=== PATIENT | female | born 1960 | race American Indian/Alaskan Native ===

== ENCOUNTER 2016-06-11 23:38 | Emergency (ER) | payer BC, OTHER ==
[2016-06-12 00:39] LABS: Basophils % (Auto) 0.6 % (0.0-1.8); Eosinophils % (Auto) 1.2 % (0.0-4.3); Hematocrit 43.7 % (30.3-42.9); Hemoglobin 14.1 gm/dl (10.1-14.3); Mean Corpuscular HGB Conc 32 % (30-34); Mean Corpuscular Hemoglobin 28 pg (28-32); Mean Corpuscular Volume 86 fl (79-97); Platelet Count 238 K/mm3 (140-440); Red Cell Distribution Width 12.8 % (13.2-15.2); White Blood Count 10.2 K/mm3 (4.5-11.0)
[2016-06-12 01:01] LABS: Anion Gap 15 mmol/L; BUN/Creatinine Ratio 17.14; Blood Urea Nitrogen 12 mg/dL (7-17); Calcium 8.9 mg/dL (8.4-10.2); Carbon Dioxide 33 mmol/L (22-30); Chloride 95.1 mmol/L (98-107); Glucose 293 mg/dL (65-100); Potassium 3.5 mmol/L (3.6-5.0); Sodium 140 mmol/L (137-145)
[2016-06-12] MEDS ORDERED: MORPHINE IV ONE (10:19)
--- NOTE | 2016-06-12 10:26 | Emergency Department Report ---
ED Chest Pain HPI - General Chief Complaint: Chest Pain Stated Complaint: CHEST PAIN Time Seen by Provider: 06/12/16 10:05 Source: patient Mode of arrival: Ambulatory Limitations: No Limitations - History of Present Illness Initial Comments: This is a 56-year-old -[place] female presents the emergency department from home with complaint of a 4 to five-day history of chest pain and some mild shortness of breath. The chest pain is mostly midsternal but radiates towards the left breast. The pain is more of a pressure sensation and happens intermittently. The patient thought it might be gas at first and tried drinking a concoction of baking soda, water and limit juice without any relief. She denies any cough, fever, nausea, vomiting or diaphoresis. The patient has a history of [id number] diabetes, hypertension, pancreatitis, anxiety. She has significant family history for cardiac disease and the fact that her mother from an KS at 47 years of age. Her sister had her first KS at 45 years of age. No recent travel or sick contacts at home. She denies tobacco or illicit drug use or abuse. Severity scale (0 -10): 7 - Related Data Home Medications Medication Instructions Recorded Confirmed Last Taken Citalopram [celeXA] 20 mg PO QDAY 05/24/13 06/21/15 05/23/13 14:00 Lisinopril [Zestril] 40 mg PO QDAY 05/24/13 06/21/15 05/23/13 14:00 Metformin HCl [Glumetza] 1,000 mg PO BID 05/24/13 06/21/15 05/23/13 14:00 glipiZIDE [Glipizide ER] 5 mg PO QAM 05/24/13 06/21/15 05/23/13 14:00 AtorvaSTATin [Lipitor] 40 mg PO HS 06/21/15 06/21/15 Unknown Previous Rx's Medication Instructions Recorded Last Taken Type Ibuprofen [Motrin] 800 mg PO Q8H PRN #30 tablet 07/28/14 Unknown Rx methOCARBAMOL [Robaxin] 500 mg PO BID #10 tab 07/28/14 Unknown Rx traMADol [Ultram] 50 mg PO Q6HR PRN #14 tablet 07/28/14 Unknown Rx Docusate Sodium [Colace] 100 mg PO BID PRN #20 capsule 06/21/15 Unknown Rx HYDROcodone/APAP 5-325 [[place] 1 each PO Q6HR PRN #20 tablet 06/21/15 Unknown Rx 5/325] Mag Hydrox/Al Hydrox/Simeth 30 ml PO QID PRN #1 bottle 06/21/15 Unknown Rx [Maalox Advanced Suspension] Omeprazole [PriLOSEC] 40 mg PO QDAY #30 cap 06/21/15 Unknown Rx Ondansetron [Zofran Odt] 4 mg PO Q8HR PRN #20 tab.rapdis 06/21/15 Unknown Rx traMADol [Ultram 50 MG tab] 50 mg PO Q6HR PRN #20 tablet 06/21/15 Unknown Rx Pantoprazole [Protonix] 40 mg PO QDAY #30 tablet 06/12/16 Unknown Rx Sucralfate [Carafate] 1 gm PO ACHS #28 tablet 06/12/16 Unknown Rx Allergies Allergy/AdvReac Type Severity Reaction Status Date / Time No Known Allergies Allergy Verified 06/21/15 12:31 VIJI score - Viji Score Age > 65: (0) No Aspirin use within the Past 7 Days: (0) No 3 or more CAD Risk Factors: (1) Yes 2 or more Angina events in past 24 hrs: (1) Yes Known CAD with more than 50% Stenosis: (0) No Elevated Cardiac Markers: (0) No ST Deviation Greater than 0.5mm: (0) No VIJI Score: 2 ED Review of Systems ROS: Stated complaint: CHEST PAIN Other details as noted in HPI Comment: All other systems reviewed and negative Constitutional: denies: chills, fever Eyes: denies: eye pain, eye discharge, vision change ENT: denies: ear pain, throat pain Respiratory: shortness of breath. denies: cough Cardiovascular: chest pain. denies: palpitations Gastrointestinal: denies: abdominal pain, nausea, diarrhea Genitourinary: denies: urgency, dysuria, discharge Musculoskeletal: denies: back pain, joint swelling, arthralgia Skin: denies: rash, lesions Neurological: denies: headache, weakness, paresthesias ED Past Medical Hx - Past Medical History Previous Medical History?: Yes Hx Hypertension: Yes Hx Diabetes: Yes Hx Psychiatric Treatment: Yes (ANXIETY) Additional medical history: h. pylori infection 5 years ago, pancreatitis, hi cholest - Surgical History Past Surgical History?: Yes Additional Surgical History: csection X 2. carpal tunnel - Social History Smoking Status: Current Every Day Smoker Substance Use Type: None - Medications Home Medications: Home Medications Medication Instructions Recorded Confirmed Last Taken Type Citalopram [celeXA] 20 mg PO QDAY 05/24/13 06/21/15 05/23/13 14:00 History Lisinopril [Zestril] 40 mg PO QDAY 05/24/13 06/21/15 05/23/13 14:00 History Metformin HCl [Glumetza] 1,000 mg PO BID 05/24/13 06/21/15 05/23/13 14:00 History glipiZIDE [Glipizide ER] 5 mg PO QAM 05/24/13 06/21/15 05/23/13 14:00 History Ibuprofen [Motrin] 800 mg PO Q8H PRN #30 tablet 07/28/14 06/21/15 Unknown Rx methOCARBAMOL [Robaxin] 500 mg PO BID #10 tab 07/28/14 06/21/15 Unknown Rx traMADol [Ultram] 50 mg PO Q6HR PRN #14 tablet 07/28/14 06/21/15 Unknown Rx AtorvaSTATin [Lipitor] 40 mg PO HS 06/21/15 06/21/15 Unknown History Docusate Sodium [Colace] 100 mg PO BID PRN #20 capsule 06/21/15 Unknown Rx HYDROcodone/APAP 5-325 [[place] 1 each PO Q6HR PRN #20 tablet 06/21/15 Unknown Rx 5/325] Mag Hydrox/Al Hydrox/Simeth 30 ml PO QID PRN #1 bottle 06/21/15 Unknown Rx [Maalox Advanced Suspension] Omeprazole [PriLOSEC] 40 mg PO QDAY #30 cap 06/21/15 Unknown Rx Ondansetron [Zofran Odt] 4 mg PO Q8HR PRN #20 tab.rapdis 06/21/15 Unknown Rx traMADol [Ultram 50 MG tab] 50 mg PO Q6HR PRN #20 tablet 06/21/15 Unknown Rx Pantoprazole [Protonix] 40 mg PO QDAY #30 tablet 06/12/16 Unknown Rx Sucralfate [Carafate] 1 gm PO ACHS #28 tablet 06/12/16 Unknown Rx ED Physical Exam - General Limitations: No Limitations - Other Other exam information: GENERAL: The patient is well-developed well-nourished. HEENT: Normocephalic. Atraumatic. Extraocular motions are intact. Patient has moist mucous membranes. Pupils equal reactive to light bilaterally. NECK: Supple. Trachea is midline. CHEST/LUNGS: Clear to auscultation. There is no respiratory distress noted. Chest pain is not reproducible to palpation the chest wall. HEART/CARDIOVASCULAR: Regular. There is no tachycardia. There is no gallop rub or murmur. ABDOMEN: Abdomen is soft, nontender. No guarding or rebound tenderness. Patient has normal bowel sounds. There is no abdominal distention. Obese habitus. SKIN: Skin is warm and dry. NEURO: The patient is awake, alert, and oriented. The patient is cooperative. The patient has no focal neurologic deficits. The patient has normal speech. MUSCULOSKELETAL: There is no tenderness or deformity. There is no limitation range of motion. There is no evidence of acute injury. ED Course Vital Signs 06/11/16 06/12/16 06/12/16 23:56 06:36 07:23 Temperature 98.0 F 97.8 F Pulse Rate 73 67 68 Respiratory 18 14 16 Rate Blood Pressure 152/87 Blood Pressure 133/75 126/67 [Left] O2 Sat by Pulse 97 98 100 Oximetry 06/12/16 06/12/16 11:50 17:01 Temperature 98.1 F Pulse Rate 67 Respiratory 18 16 Rate Blood Pressure Blood Pressure 114/69 [Left] O2 Sat by Pulse 99 Oximetry ED Medical Decision Making - Lab Data Result diagrams: 06/12/16 00:21 06/12/16 00:21 - EKG Data -: EKG Interpreted by Me EKG shows normal: sinus rhythm, axis, intervals, QRS complexes (low voltage qrs , qwaves to septal leads), ST-T waves Rate: normal - EKG Data When compared to previous EKG there are: no significant change Interpretation: unchanged when compared t (06/21/15) - Radiology Data Radiology results: report reviewed, image reviewed interpreted by me: Chest x-ray did not show any acute process. Heart is normal shape and size. No effusions. No pneumothorax. No signs of pneumonia seen. CT angiogram of the chest does not show any pulmonary embolism, dissection or any acute process. CT of the abdomen and pelvis with IV contrast shows signs of early acute pancreatitis. - Medical Decision Making 56-year-old female presents with 4-5 day history of some midsternal chest pain. EKG does not show any signs of ST elevation KS. Chest x-ray does not show any acute process. Patient had an elevated d-dimer of about [address] angiography of the chest was done that did not show any pulmonary was a more dissection or any acute process. The patient also says that she has a history of pancreatitis in the past so a lipase was done and came back at 1:15. A CT of the abdomen and pelvis with IV contrast came back showing early acute pancreatitis. My plan was for the patient to be admitted for further evaluation of her pancreatitis and possibly cardio consultation or stress test. However the hospitalist did a consultation and discharge patient home to follow-up with her PCP and store associate. - Differential Diagnosis KS, PE, pancreatitis, GERD Critical Care Time: No Critical care attestation.: If time is entered above; I have spent that time in minutes in the direct care of this critically ill patient, excluding procedure time. ED Disposition Clinical Impression: Atypical chest pain Pancreatitis Qualifiers: Chronicity: acute Pancreatitis type: unspecified pancreatitis type Acute pancreatitis complication: no infection or necrosis Qualified Code(s): K85.90 - Acute pancreatitis without necrosis or infection, unspecified Obesity Qualifiers: Obesity severity: unspecified obesity severity Disposition: DISCHARGED TO HOME OR SELFCARE Is pt being admited?: Yes Condition: Stable Instructions: Chest Pain (ED) Prescriptions: Pantoprazole [Protonix] 40 mg PO QDAY #30 tablet Sucralfate [Carafate] 1 gm PO ACHS #28 tablet Referrals: PRIMARY CARE, [Primary Care Provider] - 3-5 Days
--- NOTE | 2016-06-12 10:50 | XRay Report ---
AP CHEST: HISTORY: chest pain AP view of the chest demonstrates a normal mediastinal and cardiac contour with clear lungs and normal bony and soft tissue structures. IMPRESSION: Unremarkable AP chest.
--- NOTE | 2016-06-12 11:18 | Admit Criteria Form ---
Admission Criteria Documentation: CARDIOLOGY GRG Clinical Indications for Admission to Inpatient Care ( Place 'X' for any and all applicable criteria): Hospital admission is needed for appropriate care of the patient because of ANY ONE of the following (1): [ ] I. Hemodynamic instability as indicated by ALL of the following (1)(2)(3) (4)(5) [ ]a) Vital signs or other findings not as expected for chronic patient condition or baseline [ ]b) Instability indicated by ANY ONE of the following: [ ]i) Hypotension [ ]ii) Symptomatic Tachycardia unresponsive to treatment ( e.g., analgesia, fluids, sedation as indicated) [ ]iii) Inadequate perfusion indicated by ANY ONE of the following: [ ] 1) Lactic acidosis (> 2 mmol/L) [ ] 2) New abnormal capillary refill (> 3 seconds) [ ] 3) Reduced urine output [ ] 4) New altered mental status [ ]iv) Orthostatic vital sign changes unresponsive to treatment (e.g., fluids) [ ]v) IV inotropic or vasopressor medication required to maintain adequate blood pressure or perfusion [ ] II. Severe heart failure as indicated by ANY ONE of the following(17)(18) [ ]a) Respiratory distress [ ]b) Hypotension [ ]c) Anasarca (refractory to outpatient therapy) [ ]d) Cardiac arrhythmias of immediate concern [ ]e) Myocardial ischemia [ ] III. Cardiac arrhythmias or findings of immediate concern indicated by ANY ONE of the following (19)(20): [ ] a) Heart rhythms that are inherently dangerous or unstable indicated by ANY ONE of the following (21)(22)(23): [ ] i) Resuscitated ventricular fibrillation or cardiac arrest [ ] ii) Ventricular escape rhythm [ ] iii) Sustained ventricular tachycardia (30 seconds or more of ventricular rhythm at greater than 100 beats per minute) [ ] iv) Nonsustained ventricular tachycardia and ANY ONE of the following: [ ] 1) Suspected cardiac ischemia as cause or consequence of ventricular tachycardia [ ] 2) In setting of acute myocarditis [ ] b) Unstable cardiac conduction defects indicated by ANY ONE of the following(23)(24)(25) [ ] i) Type II second-degree atrioventricular block [ ]ii) Third-degree atrioventricular block [ ]iii) New-onset left bundle branch block with suspected myocardial ischemia [ ]c) Any heart rhythm and ANY ONE of the following (21)(22)(26)(27) (28) [ ] i) Continuous long-term ECG monitoring needed (e.g., initiation of drug requiring monitoring for more than 24 hours) [ ] ii) Patient has automatic implanted cardioverter defibrillator that is repeatedly firing, malfunctioning, or in need of immediate adjustment of settings beyond the scope of ambulatory or observation care [ ]d) Heart rhythms of concern due to ANY ONE of the following: [ ] i) Hypotension [ ] ii) Respiratory distress [ ] iii) Association with other significant symptoms (e.g., bradycardia with syncope or ongoing dizziness, supraventricular tachycardia with chest pain (14)(15)(17) [ ] IV. Monitoring for cardiac contusion beyond the scope of observation care needed [A](30)(31)(32) [ ] V. Surgical or device complication (e.g., valve replacement complication , pacemaker dysfunction) (35)(41)(44)(45)(46) [ ] . Inpatient palliative care needed. [B](49) Also use Inpatient Palliative Care Criteria [ ] VII. Nonbacterial thrombotic (marantic) endocarditis (36)(43)(47)(48) [X ] VIII. Cardiology condition, symptom, or finding for which emergency and observation care has failed or are not considered appropriate. [ ] IX. Acute valvular disease requiring inpatient as indicated by ANY ONE of the following (41) [ ]a) Acute valvular regurgitation (42) [ ]b) Noninfectious valvulitis (43) [ ]c) Obstructive valve thrombosis [ ]d) Paravalvular leak [ ]e) Other significant valvular disorder remaining after emergency or observation level of care (as appropriate) [ ]X. Pericardial disease requiring inpatient treatment as indicated by ANY ONE of the following (33)(34)(35)(36)(37) [ ]a) Suspected tamponade (38)(39)(40) [ ]b) Hemopericardium [ ]c) Other significant pericardial disorder remaining after emergency or observation level of care (as appropriate) [ ] XI. Cardiac ischemia beyond scope of emergency and observation care. [ ] XII. Hypertension requiring inpatient treatment as indicated by ANY ONE of the following (6)(7)(8) [ ]a) SBP greater than 220 mm Hg or DBP greater than 120 mmHg despite treatment [ ]b) SBP greater than 140 mm Hg or DBP greater than 100 mm Hg with evidence of acute end organ damage as indicated by ANY ONE of the following [ ] i) Altered mental status [ ] ii) Acute renal failure as indicated by new onset of ANY ONE of the following (9)(10)(11)(12)(13) [ ]1) 3-fold rise in serum creatinine from baseline [ ]2) Serum creatinine greater than 4 mg/dL ( 354 micromoles/L) with acute rise greater than 0.5 mg/dL (44.2 micromoles/L) [ ]3) Reduction of more than 75% in estimated glomerular filtration rate from baseline [ ]4) Estimated glomerular filtration rate less than 35 mL/min/1.73m2 (0.59 mL/sec/1.73m2) in child up to 18 years of age [ ]5) Cessation of urine output indicated by ALL of the following [ ]A. Adequate volume status [ ]B. Inadequate urine output as indicated by ANY ONE of the following [ ]a. Urine output less than 0.3 mL/kg/hr for 24 hours [ ]b. Anuria (urine output less than 0.1 mL/kg/hr) for 12 hours [ ] iii) Aortic dissection [ ] iv) Myocardial Ischemia [ ] v) Left ventricular heart failure [ ]vi) Retinal Hemorrhage [ ]vii) Other significant finding [ ]c) Hypertension in child requiring inpatient treatment as indicated by ALL of the following(14)(15)(16) [ ] i) Outpatient treatment not effective, not available, or not appropriate [ ]ii) SBP or DBP greater than 95th percentile for age [ ]iii) Evidence of acute end organ damage as indicated by ANY ONE of the following [ ]1) Altered mental status [ ]2) Acute renal failure as indicated by new onset of ANY ONE of the following(9)(10)(11)(12)(13) [ ]A. 3-fold rise in serum creatinine from baseline [ ]B. Serum creatinine greater than 4 mg/dL (354 micromoles/L) with acute rise greater than 0.5 mg/dL (44.2 micromoles/L) [ ]C. Reduction of more than 75% in estimated glomerular filtration rate from baseline [ ]D. Estimated glomerular filtration rate less than 35 mL/min/1.73m2 (0.59 mL/sec/1.73m2) in child up to 18 years of age [ ]E. Cessation of urine output indicated by ALL of the following [ ]a. Adequate volume status [ ]b. Inadequate urine output as indicated by ANY ONE of the following [ ]i) Urine output less than 0.3 mL/kg/hr for 24 hours [ ]ii) Anuria ( urine output less than 0.1 mL/kg/hr) for 12 hours [ ]3) Severe headache [ ]4) Visual disturbance [ ]5) Retinal hemorrhage [ ]6) Other significant finding [ ]XIII. Complications of transplanted heart indicated by ANY ONE of the following(61): [ ]a) Acute graft rejection requiring inpatient management (eg, intravenous immunosuppression)(62)(63) [ ]b) Acute graft heart failure indicated by ANY ONE of the following(64): [ ]i) Hemodynamic instability [ ]ii) Cardiac arrhythmias of immediate concern [ ]iii) Pulmonary edema that is very severe (eg, mechanical ventilation needed, imminent or likely, need for 100% oxygen to keep oxygen saturation above 90%) [ ]iv) Pulmonary edema that is persistent as indicated by ALL of the following: [ ]1) New need for oxygen therapy to keep oxygen saturation above 90% (or increased FiO2 need from baseline) [ ]2) Has not improved sufficiently with emergency department or observation care IV diuretics or other heart failure treatments[E] [ ]v) Altered mental status that is severe or persistent [ ]vi) Increased creatinine (new on laboratory test) with reduction of more than 50% in estimated glomerular filtration rate from baseline [ ]vii) Progressively (ongoing) rising creatinine (known from past laboratory test) with reduction of more than 25% in estimated glomerular filtration rate from baseline [ ]viii) Acute renal failure [ ]ix) Acute peripheral ischemia (eg, examination shows pulseless, cool, mottled, or cyanotic extremity) [ ]x) Pulmonary artery catheter monitoring needed [ ]xi) Other sign or symptom of heart failure requiring inpatient treatment (ie, too severe or not responsive to outpatient and observation care treatment) [ ]c) Infection requiring inpatient management (eg, Hemodynamic instability, need for intravenous antimicrobial treatment)(66)(67)(68)(69)(70) [ ]d) Cardiac allograft vasculopathy requiring inpatient management ( eg evidence of cardiac ischemia)(71) [ ]e) Other complication of transplanted heart (eg, stroke, severe pulmonary hypertension, severe valvular dysfunction) requiring inpatient management(72) The original [facility] [employer] content created by [facility] [employer] has been revised. The portions of the content which have been revised are identified through the use of italic text or in bold, and [facility] has neither reviewed nor approved the modified material. All other unmodified content is copyright [facility] [employer]. Please see references footnoted in the original [facility] [employer] edition 2016 Admission Criteria Met: Yes
[2016-06-12] MEDS ORDERED: ZOFRAN ONE (11:31)
[2016-06-12] MEDS ORDERED: ZOFRAN IV ONE (11:49)
[2016-06-12] MEDS ORDERED: NACL ONE (12:11)
--- NOTE | 2016-06-12 13:55 | Cat Scan Report ---
CTA CHEST: History: Chest pain. Technique: Helical CT following IV contrast. Pulmonary embolus protocol. Sagittal and coronal reformatted images. Rotational MIP images. Findings: Contrast bolus is satisfactory. No pulmonary embolus is identified. The thyroid gland, tracheobronchial tree, esophagus, heart, pericardium, mediastinal vessels, lung barnes and bony thorax are unremarkable. Impression: No evidence for pulmonary embolus. Unremarkable CT chest with contrast.
--- NOTE | 2016-06-12 13:57 | Cat Scan Report ---
CT SCAN OF THE ABDOMEN AND PELVIS WITH CONTRAST: HISTORY: Abdominal pain. TECHNIQUE: Helical CT in 1.25mm intervals following IV contrast. Sagittal and coronal reconstructions. FINDINGS: There is very subtle fat stranding surrounding the body and tail of the pancreas. No evidence for pancreatic mass, ductal dilatation or pseudocyst. Very early acute pancreatitis is suspected. The liver is normal in size and is without focal defect. No gallstones or biliary dilatation are noted. The spleen is normal size and attenuation with no evidence of abnormal mass. The kidneys are normal in size and position with no evidence of hydronephrosis or mass. The adrenal glands are normal. There is no intestinal obstruction or ascites. Normal appendix. The abdominal aorta is normal. The uterus and adnexa are within normal limits. There is no evidence of peritoneal air or fluid. There is no evidence of any abnormal masses or fluid collections within the pelvis. No adenopathy is identified. The bladder is normal. IMPRESSION: Findings suggestive of an early acute pancreatitis. No pseudocyst, mass or necrosis. No obvious cholelithiasis on CT.
--- NOTE | 2016-06-12 15:46 | Consultation ---
History of Present Illness - Reason for Consult Consult date: 06/12/16 Requesting physician: HANK TOWNSEND - History of Present Illness 56 YO Female with DM, HTN, Anxiety, PUD, Nicotine Dependence, HLD, Metabolic Syndrome presents to ED for evaluation. Pt states that she has been experiencing pain in her epigastric area for the past 2 weeks. Pt states that her pain is constant, 8/10, nonradiating, not worsened with exertion, or relieved with rest. Pt acknowledges pain after eating, Pt denies fever, chills, palpitations, hemoptysis, shortness of breath, leg swelling, calf pain, prolonged travel/immobility, individual/family history of DVT/PE. Pt states that she drank a mixture of baking soda, water and lemon juice without any relief. Past History Past Medical History: diabetes, hypertension, hyperlipidemia Past Surgical History: Other (reviewed) Social history: single. denies: smoking, alcohol abuse Family history: hypertension Medications and Allergies Allergies Allergy/AdvReac Type Severity Reaction Status Date / Time No Known Allergies Allergy Verified 06/21/15 12:31 Home Medications Medication Instructions Recorded Confirmed Last Taken Type Citalopram [celeXA] 20 mg PO QDAY 05/24/13 06/21/15 05/23/13 14:00 History Lisinopril [Zestril] 40 mg PO QDAY 05/24/13 06/21/15 05/23/13 14:00 History Metformin HCl [Glumetza] 1,000 mg PO BID 05/24/13 06/21/15 05/23/13 14:00 History glipiZIDE [Glipizide ER] 5 mg PO QAM 05/24/13 06/21/15 05/23/13 14:00 History Ibuprofen [Motrin] 800 mg PO Q8H PRN #30 tablet 07/28/14 06/21/15 Unknown Rx methOCARBAMOL [Robaxin] 500 mg PO BID #10 tab 07/28/14 06/21/15 Unknown Rx traMADol [Ultram] 50 mg PO Q6HR PRN #14 tablet 07/28/14 06/21/15 Unknown Rx AtorvaSTATin [Lipitor] 40 mg PO HS 06/21/15 06/21/15 Unknown History Docusate Sodium [Colace] 100 mg PO BID PRN #20 capsule 06/21/15 Unknown Rx HYDROcodone/APAP 5-325 [[place] 1 each PO Q6HR PRN #20 tablet 06/21/15 Unknown Rx 5/325] Mag Hydrox/Al Hydrox/Simeth 30 ml PO QID PRN #1 bottle 06/21/15 Unknown Rx [Maalox Advanced Suspension] Omeprazole [PriLOSEC] 40 mg PO QDAY #30 cap 06/21/15 Unknown Rx Ondansetron [Zofran Odt] 4 mg PO Q8HR PRN #20 tab.rapdis 06/21/15 Unknown Rx traMADol [Ultram 50 MG tab] 50 mg PO Q6HR PRN #20 tablet 06/21/15 Unknown Rx Pantoprazole [Protonix] 40 mg PO QDAY #30 tablet 06/12/16 Unknown Rx Sucralfate [Carafate] 1 gm PO ACHS #28 tablet 06/12/16 Unknown Rx Review of Systems All systems: negative Gastrointestinal: dyspepsia/bloating Exam - Constitutional Vitals: Temp Pulse Resp BP Pulse Ox 97.8 F 68 18 126/67 100 06/12/16 07:23 06/12/16 07:23 06/12/16 11:50 06/12/16 07:23 06/12/16 07:23 General appearance: Present: no acute distress, well-nourished, obese - EENT Eyes: Present: PERRL ENT: hearing intact, clear oral mucosa - Neck Neck: Present: supple, normal ROM - Respiratory Respiratory effort: normal Respiratory: bilateral: CTA - Cardiovascular Heart Sounds: Present: S1 & S2. Absent: rub, click - Extremities Extremities: pulses symmetrical, No edema Peripheral Pulses: within normal limits - Abdominal General gastrointestinal: Present: soft, non-tender, non-distended, normal bowel sounds Female genitourinary: Present: normal - Integumentary Integumentary: Present: clear, warm, dry - Musculoskeletal Musculoskeletal: gait normal, strength equal bilaterally - Psychiatric Psychiatric: appropriate mood/affect, intact judgment & insight - Neurologic Neurologic: CNII-XII intact, moves all extremities Results - Labs CBC & Chem 7: 06/12/16 00:21 06/12/16 00:21 Labs: Abnormal lab results 06/12/16 06/12/16 06/12/16 Range/Units 00:21 00:21 06:02 RBC 5.10 H (3.65-5.03) M/mm3 Hct 43.7 H (30.3-42.9) % RDW 12.8 L (13.2-15.2) % Lymph % (Auto) 40.3 H (13.4-35.0) % [place] % (Auto) 9.1 H (0.0-7.3) % [place] # 0.9 H (0.0-0.8) K/mm3 D-Dimer (0-234) ng/mlDDU Potassium 3.5 L (3.6-5.0) mmol/L Chloride 95.1 L (98-107) mmol/L Carbon Dioxide 33 H (22-30) mmol/L Glucose 293 H (65-100) mg/dL Lipase 115 H (13-60) units/L /02/16 Range/Units 10:32 RBC (3.65-5.03) M/mm3 Hct (30.3-42.9) % RDW (13.2-15.2) % Lymph % (Auto) (13.4-35.0) % [place] % (Auto) (0.0-7.3) % [place] # (0.0-0.8) K/mm3 D-Dimer 455.30 H (0-234) ng/mlDDU Potassium (3.6-5.0) mmol/L Chloride (98-107) mmol/L Carbon Dioxide (22-30) mmol/L Glucose (65-100) mg/dL Lipase (13-60) units/L Assessment and Plan - Patient Problems (1) Atypical chest pain Current Visit: Yes Status: Acute Plan to address problem: Negative workup: Negative serial cardiac enzymes, ekg, D dimer, CTA chest. (2) GERD (gastroesophageal reflux disease) Current Visit: Yes Status: Acute Qualifiers: Esophagitis presence: E Plan to address problem: PPI therapy, Carafate, (3) Metabolic syndrome Current Visit: Yes Status: Acute Plan to address problem: Pt counseled regarding balanced diet, increased physical activity, Pt given meal plan. (4) Obesity Current Visit: Yes Status: Acute Qualifiers: Obesity type: O Obesity severity: O Plan to address problem: Pt counseled.
[2016-06-12] MEDS ORDERED: NORCO 5/325 ONE (16:34)
[2016-06-12] MEDS ORDERED: NORCO 5/325 PO ONE (17:01)
[2016-06-12 17:02] VITALS: BP 114/69
== END 2016-06-12 17:02 | disposition home or self-care (01) ==
LOC: ED 23:38
DX: K85.90 Acute pancreatitis without necrosis or infection, unspecified (principal); R07.89 Other chest pain; E66.9 Obesity, unspecified; I10 Essential (primary) hypertension; E11.9 Type 2 diabetes mellitus without complications; F41.9 Anxiety disorder, unspecified; F17.200 Nicotine dependence, unspecified, uncomplicated
CPT/HCPCS: 36415; 71010; 71275; 74177; 80048; 83690; 83880; 84484; 85025; 85379; 93005; 93010; 96374; 96375; 99285; J2270; J2405; Q9967

== ENCOUNTER 2018-04-19 07:47 | Emergency (ER) | payer SELFPAY ==
[2018-04-19] MEDS ORDERED: NACL 0.9% 1000 ML 1,000 ML IV ONE ×2 (07:55→11:36)
[2018-04-19 08:19] LABS: Basophils # (Auto) 0.2 K/mm3 (0.0-0.1); Basophils % (Auto) 1.4 % (0.0-1.8); Eosinophils # (Auto) 0.2 K/mm3 (0.0-0.4); Eosinophils % (Auto) 1.4 % (0.0-4.3); Hematocrit 45.8 % (30.3-42.9); Lymphocytes # (Auto) 3.9 K/mm3 (1.2-5.4); Lymphocytes % (Auto) 32.3 % (13.4-35.0); Mean Corpuscular HGB Conc 33 % (30-34); Mean Corpuscular Volume 86 fl (79-97); Platelet Count 247 K/mm3 (140-440); Red Blood Count 5.35 M/mm3 (3.65-5.03)
[2018-04-19 08:38] LABS: Alanine Aminotransferase 9 units/L (7-56); Albumin 4.2 g/dL (3.9-5); BUN/Creatinine Ratio 22; Blood Urea Nitrogen 13 mg/dL (7-17); Calcium 9.2 mg/dL (8.4-10.2); Hemolysis Index 19
[2018-04-19] MEDS ORDERED: PEPCID PO ONE (09:05)
[2018-04-19] MEDS ORDERED: ALUM-MAG HYDROX-SIMETH 200-200-20MG/5ML PO ONE (09:05)
[2018-04-19] MEDS ORDERED: LIDOCAINE VISCOUS 2% PO ONE (09:05)
[2018-04-19 09:10] LABS: Bacteria,Urine 2+ /HPF (Negative); Bilirubin,Urine NEG (Negative); Blood,Urine NEG (Negative); Color,Urine Yellow (Yellow); Mucus,Urine FEW /HPF; Protein,Urine <15 mg/dL mg/dL (Negative); Urobilinogen,Urine < 2.0 mg/dL (<2.0)
--- NOTE | 2018-04-19 09:36 | Emergency Department Report ---
HPI - General Chief Complaint: Pain General Time Seen by Provider: 04/19/18 08:42 - HPI HPI: This is a 58-year-old female with a history of hypertension who presents to ED complaining of mid sternal radiating symptoms that left-sided chest pain 2 days. Patient discussed with a throbbing nature, aching sensation with no history of trauma fall or injury. Patient states around overmedication for blood pressure which is lisinopril about a month ago. Patient also states history of acid reflux disease which she takes medication for but took one Without relief She denies shortness of breath, fever, chills, no vomiting ED Past Medical Hx - Past Medical History Previous Medical History?: Yes Hx Hypertension: Yes Hx Diabetes: Yes Hx Psychiatric Treatment: Yes (ANXIETY) Additional medical history: h. pylori infection 5 years ago, pancreatitis, hi cholest - Surgical History Past Surgical History?: Yes Additional Surgical History: csection X 2. carpal tunnel - Social History Smoking Status: Current Every Day Smoker Substance Use Type: Prescribed - Medications Home Medications: Home Medications Medication Instructions Recorded Confirmed Last Taken Type Citalopram [celeXA] 20 mg PO QDAY 05/24/13 06/21/15 05/23/13 14:00 History Metformin HCl [Glumetza] 1,000 mg PO BID 05/24/13 06/21/15 05/23/13 14:00 History Ibuprofen [Motrin] 800 mg PO Q8H PRN #30 tablet 07/28/14 06/21/15 Unknown Rx methOCARBAMOL [Robaxin] 500 mg PO BID #10 tab 07/28/14 06/21/15 Unknown Rx traMADol [Ultram] 50 mg PO Q6HR PRN #14 tablet 07/28/14 06/21/15 Unknown Rx AtorvaSTATin [Lipitor] 40 mg PO HS 06/21/15 06/21/15 Unknown History Docusate Sodium [Colace] 100 mg PO BID PRN #20 capsule 06/21/15 Unknown Rx HYDROcodone/APAP 5-325 [[place] 1 each PO Q6HR PRN #20 tablet 06/21/15 Unknown Rx 5/325] Omeprazole [PriLOSEC] 40 mg PO QDAY #30 cap 06/21/15 Unknown Rx Ondansetron [Zofran Odt] 4 mg PO Q8HR PRN #20 tab.rapdis 06/21/15 Unknown Rx traMADol [Ultram 50 MG tab] 50 mg PO Q6HR PRN #20 tablet 06/21/15 Unknown Rx Sucralfate [Carafate] 1 gm PO ACHS #28 tablet 06/12/16 Unknown Rx Lisinopril [Zestril TAB] 40 mg PO QDAY #40 tablet 04/19/18 Unknown Rx Mag Hydrox/Aluminum Hyd/Simeth 30 ml PO QID PRN #1 bottle 04/19/18 Unknown Rx [Maalox Advanced Suspension] Pantoprazole [Protonix TAB] 40 mg PO QDAY #30 tablet 04/19/18 Unknown Rx glipiZIDE [glipiZIDE ER] 5 mg PO QAM #40 tab.er.24 04/19/18 Unknown Rx metFORMIN [Glucophage] 500 mg PO BID #40 tablet 04/19/18 Unknown Rx ED Review of Systems ROS: Stated complaint: RIB/BACK PAIN Other details as noted in HPI Comment: All other systems reviewed and negative Physical Exam - Physical Exam Vital Signs: Vital Signs 04/19/18 07:50 Temperature 98.3 F Pulse Rate 82 Respiratory 18 Rate Blood Pressure 163/80 O2 Sat by Pulse 99 Oximetry Physical Exam: GENERAL: Alert and oriented x3, no apparent distress, Normal Gait, atraumatic. HEAD: Head is normocephalic and a-traumatic. NECK: Supple. Non edematous, No carotid bruits. No lymphadenopathy or thyromegaly. No C-spine tenderness LUNGS: Symetrical with respiration, No wheezing, no rales or crackles, CTAB. HEART: S1, S2 present, regular rate and rhythm without murmur, no rubs, no g allops. Non tender to palpation ABDOMEN: No organomegaly was noted,Positive bowel sounds, soft, and non- distended. . Nontender to palpation on all Quadrants, NO CVA tenderness. BACK: Full range of motion, no spinal tenderness, nontender to palpation. EXTREMITIES/MUSCULOSKELETAL: No cyanosis, clubbing, rash, lesions or edema. Full ROM bilaterally. UE/LE Pulses 2+ bilaterally. LE and UE 5+ strength bilaterally, straight leg raise negative bilaterally NEUROLOGIC: The patient is cooperative with no focal neurologic deficits. SKIN: Warm and dry, No lesions, No ulceration or induration present. ED Course Vital Signs 04/19/18 07:50 Temperature 98.3 F Pulse Rate 82 Respiratory 18 Rate Blood Pressure 163/80 O2 Sat by Pulse 99 Oximetry - Reevaluation(s) Reevaluation #1: Patient is sleeping comfortably in the ED. Patient states she feels slightly better 04/19/18 10:29 ED Medical Decision Making - Lab Data Result diagrams: 04/19/18 07:57 04/19/18 08:00 Laboratory Last Values WBC 12.0 K/mm3 (4.5-11.0) H 04/19/18 07:57 RBC 5.35 M/mm3 (3.65-5.03) H 04/19/18 07:57 Hgb 15.0 gm/dl (10.1-14.3) H 04/19/18 07:57 Hct 45.8 % (30.3-42.9) H 04/19/18 07:57 MCV 86 fl (79-97) 04/19/18 07:57 MCH 28 pg (28-32) 04/19/18 07:57 MCHC 33 % (30-34) 04/19/18 07:57 RDW 13.0 % (13.2-15.2) L 04/19/18 07:57 Plt Count 247 K/mm3 (140-440) 04/19/18 07:57 Lymph % (Auto) 32.3 % (13.4-35.0) 04/19/18 07:57 [place] % (Auto) 8.0 % (0.0-7.3) H 04/19/18 07:57 Eos % (Auto) 1.4 % (0.0-4.3) 04/19/18 07:57 Baso % (Auto) 1.4 % (0.0-1.8) 04/19/18 07:57 Lymph # 3.9 K/mm3 (1.2-5.4) 04/19/18 07:57 [place] # 1.0 K/mm3 (0.0-0.8) H 04/19/18 07:57 Eos # 0.2 K/mm3 (0.0-0.4) 04/19/18 07:57 Baso # 0.2 K/mm3 (0.0-0.1) H 04/19/18 07:57 Seg Neutrophils % 56.9 % (40.0-70.0) 04/19/18 07:57 Seg Neutrophils # 6.8 K/mm3 (1.8-7.7) 04/19/18 07:57 Sodium 137 mmol/L (137-145) 04/19/18 08:00 Potassium 3.8 mmol/L (3.6-5.0) 04/19/18 08:00 Chloride 96.9 mmol/L (98-107) L 04/19/18 08:00 Carbon Dioxide 27 mmol/L (22-30) 04/19/18 08:00 Anion Gap 17 mmol/L 04/19/18 08:00 BUN 13 mg/dL (7-17) 04/19/18 08:00 Creatinine 0.6 mg/dL (0.7-1.2) L 04/19/18 08:00 Estimated GFR > 60 ml/min 04/19/18 08:00 BUN/Creatinine Ratio 22 % 04/19/18 08:00 Glucose 323 mg/dL (65-100) H 04/19/18 08:00 POC Glucose 242 (70-105) H 04/19/18 12:44 Calcium 9.2 mg/dL (8.4-10.2) 04/19/18 08:00 Total Bilirubin 0.40 mg/dL (0.1-1.2) 04/19/18 08:00 AST 11 units/L (5-40) 04/19/18 08:00 ALT 9 units/L (7-56) 04/19/18 08:00 Alkaline Phosphatase 106 units/L (35-129) 04/19/18 08:00 Troponin T < 0.010 ng/mL (0.00-0.029) 04/19/18 11:56 Total Protein 7.3 g/dL (6.3-8.2) 04/19/18 08:00 Albumin 4.2 g/dL (3.9-5) 04/19/18 08:00 Albumin/Globulin Ratio 1.4 % 04/19/18 08:00 Lipase 113 units/L (13-60) H 04/19/18 08:00 Urine Color Yellow (Yellow) 04/19/18 08:15 Urine Turbidity Clear (Clear) 04/19/18 08:15 Urine pH 5.0 (5.0-7.0) 04/19/18 08:[address] 1.032 (1.003-1.030) H 04/19/18 08:15 Urine Protein <15 mg/dl mg/dL (Negative) 04/19/18 08:15 Urine Glucose (UA) >=500 mg/dL (Negative) 04/19/18 08:15 Urine Ketones 20 mg/dL (Negative) 04/19/18 08:15 Urine Blood Neg (Negative) 04/19/18 08:15 Urine Nitrite Neg (Negative) 04/19/18 08:15 Urine Bilirubin Neg (Negative) 04/19/18 08:15 Urine Urobilinogen < 2.0 mg/dL (<2.0) 04/19/18 08:15 Ur Leukocyte Esterase Neg (Negative) 04/19/18 08:15 Urine WBC (Auto) 2.0 /HPF (0.0-6.0) 04/19/18 08:15 Urine RBC (Auto) 1.0 /HPF (0.0-6.0) 04/19/18 08:15 U Epithel Cells (Auto) 4.0 /HPF (0-13.0) 04/19/18 08:15 Urine Bacteria (Auto) 2+ /HPF (Negative) 04/19/18 08:15 Urine Mucus Few /HPF 04/19/18 08:15 - Medical Decision Making 58-year-old female presents with uncontrolled diabetes Insulin given in ED. Patient received 1 L of fluids as well Labs were all within normal limits lipase a WBC elevated due to the fact the patient has a gastric disorder, Vital signs are normal she is in no acute distress Discussed follow-up with establishment guide. Medications were refilled until the patient is able to follow-up with a primary care physician Referrals given. Point of care glucose decreased prior to discharge Critical care attestation.: If time is entered above; I have spent that time in minutes in the direct care of this critically ill patient, excluding procedure time. ED Disposition Clinical Impression: Uncontrolled diabetes mellitus, High blood pressure disorder, Gastritis Disposition: DC-01 TO HOME OR SELFCARE Is pt being admited?: No Does the pt Need Aspirin: No Condition: Stable Instructions: Diet for Ulcers and Gastritis (ED), Diabetes Mellitus Type 2 in Adults (ED), Gastroesophageal Reflux Disease (ED), Hypertension (ED) Additional Instructions: Make sure to follow up with the primary care physician as discussed. Take all your medications as you've been prescribed. If you have any worsening symptoms or develop new symptoms please return to ED immediately. Prescriptions: glipiZIDE [glipiZIDE ER] 5 mg PO QAM #40 tab.er.24 Lisinopril [Zestril TAB] 40 mg PO QDAY #40 tablet Mag Hydrox/Aluminum Hyd/Simeth [Maalox Advanced Suspension] 30 ml PO QID PRN #1 bottle PRN Reason: Indigestion metFORMIN [Glucophage] 500 mg PO BID #40 tablet Pantoprazole [Protonix TAB] 40 mg PO QDAY #30 tablet Referrals: [facility] [Other] - 3-5 Days [facility] [Provider Group] - 3-5 Days [facility] [Provider Group] - 3-5 Days Forms: Accompanied Note, Work/School Release Form(ED) Time of Disposition: 13:31
--- NOTE | 2018-04-19 10:41 | XRay Report ---
FINAL REPORT EXAM: XR CHEST ROUTINE 2V HISTORY: ch pain COMPARISON: None. TECHNIQUE: Frontal and lateral views of the chest. FINDINGS: The cardiomediastinal silhouette is normal in appearance. The lungs are clear without focal consolidation. There is no pleural effusion or pneumothorax. There is no acute soft tissue or osseous abnormality. IMPRESSION: No acute cardiopulmonary disease.
[2018-04-19 12:53] VITALS: BP 146/73
== END 2018-04-19 13:46 | disposition home or self-care (01) ==
LOC: ED 07:47
DX: K29.70 Gastritis, unspecified, without bleeding (principal); I10 Essential (primary) hypertension; E11.9 Type 2 diabetes mellitus without complications; F41.9 Anxiety disorder, unspecified; F17.200 Nicotine dependence, unspecified, uncomplicated; E78.00 Pure hypercholesterolemia, unspecified; Z79.84 Long term (current) use of oral hypoglycemic drugs
CPT/HCPCS: 36415; 71046; 80053; 81001; 82962; 83690; 84484; 85025; 96360; 96372; 99284; J7030; J1815

== ENCOUNTER 2018-10-15 12:53 | Emergency (ER) | payer SELFPAY ==
--- NOTE | 2018-10-15 13:12 | Emergency Department Report ---
Blank Doc - Documentation Documentation: This is a 58-year-old female that presents with epigastric abdominal pain. De nies any CP or SOB. This initial assessment/diagnostic orders/clinical plan/treatment(s) is/are subject to change based on patient's health status, clinical progression and re- assessment by fellow clinical providers in the ED. Further treatment and workup at subsequent clinical providers discretion. Patient/guardians urged not to elope from the ED as their condition may be serious if not clinically assessed and managed. Initial orders include: 1- Patient sent to [facility] for further evaluation and treatment 2- labs 3- UA
[2018-10-15 13:37] LABS: Basophils # (Auto) 0.1 K/mm3 (0.0-0.1); Eosinophils # (Auto) 0.1 K/mm3 (0.0-0.4); Eosinophils % (Auto) 0.8 % (0.0-4.3); Hematocrit 50.2 % (30.3-42.9); Hemoglobin 16.2 gm/dl (10.1-14.3); Lymphocytes # (Auto) 2.9 K/mm3 (1.2-5.4); Lymphocytes % (Auto) 28.8 % (13.4-35.0); Mean Corpuscular HGB Conc 32 % (30-34); Mean Corpuscular Volume 87 fl (79-97); Monocytes # (Auto) 0.8 K/mm3 (0.0-0.8); Monocytes % (Auto) 7.8 % (0.0-7.3); Platelet Count 274 K/mm3 (140-440); Red Blood Count 5.75 M/mm3 (3.65-5.03); Red Cell Distribution Width 13.1 % (13.2-15.2)
[2018-10-15 13:56] LABS: Alanine Aminotransferase 10 units/L (7-56); Albumin 4.2 g/dL (3.9-5); BUN/Creatinine Ratio 21; Blood Urea Nitrogen 15 mg/dL (7-17); Calcium 9.4 mg/dL (8.4-10.2); Hemolysis Index 1
[2018-10-15 14:27] LABS: Bacteria,Urine 3+ /HPF (Negative); Bilirubin,Urine NEG (Negative); Blood,Urine SM (Negative); Color,Urine Yellow (Yellow); Mucus,Urine FEW /HPF; Protein,Urine <15 mg/dL mg/dL (Negative); Urobilinogen,Urine < 2.0 mg/dL (<2.0)
[2018-10-15] MEDS ORDERED: LIDOCAINE VISCOUS 2% PO ONE (18:34)
[2018-10-15] MEDS ORDERED: BENTYL IM ONE (18:34)
[2018-10-15] MEDS ORDERED: ALUM-MAG HYDROX-SIMETH 200-200-20MG/5ML PO ONE (18:34)
[2018-10-15] MEDS ORDERED: NACL 0.9% 1000 ML 1,000 ML IV ONE ×2 (18:34→18:35)
[2018-10-15] MEDS ORDERED: PROTONIX IV ONE (18:35)
--- NOTE | 2018-10-15 19:42 | XRay Report ---
ACUTE ABDOMINAL SERIES INDICATION / CLINICAL INFORMATION: epigastric pain, mucus production. COMPARISON: None FINDINGS: Bowel gas pattern is nonspecific, certainly not indicative of obstruction. There is considerable feca l material throughout the colon, with dense appearing feces in the left and transverse colon, suggest ing constipation. No free air or obvious abnormal mass or calcification. Accompanying chest radiograph shows no acute disease. IMPRESSION: Probable constipation. Otherwise negative study. Signer Name: Puneet Berg MD Signed: 10/15/2018 7:37 PM Workstation Name: [employer]
[2018-10-15 19:48] VITALS: BP 142/79
[2018-10-15] MEDS ORDERED: HumuLIN R SUB-Q ONE (20:28)
[2018-10-15] MEDS ORDERED: TORADOL IV ONE (21:05)
--- NOTE | 2018-10-15 21:40 | Emergency Department Report ---
ED Abdominal Pain HPI - General Chief Complaint: Abdominal Pain Stated Complaint: CHEST PAIN/STOMACH PAIN Time Seen by Provider: 10/15/18 13:11 Source: patient Mode of arrival: Ambulatory Limitations: No Limitations - History of Present Illness Initial Comments: Patient is a 58-year-old female presents to the emergency room with complaints of epigastric abdominal pain that radiates to the chest that began 2 weeks ago. she describes the pain as a burning sensation. She states she has been spitting up mucus. she states she has associated nausea and one episode of emesis. She states she has been taking Mucinex and drinking hot tea. she denies any cough or fever. She states she has felt constipated and had a small bowel movement today. She has a past medical history of acid reflux and H. pylori but is not currently on any medications. She does not have a GI doctor. She has a past medical history of hypertension and diabetes. States she takes metformin and glipizide for her diabetes. She states she was on insulin but could no longer afford it so her doctor placed her on the oral medications. Severity scale (0 -10): 5 - Related Data Home Medications Medication Instructions Recorded Confirmed Last Taken Citalopram [celeXA] 20 mg PO QDAY 05/24/13 06/21/15 05/23/13 14:00 Metformin HCl [Glumetza] 1,000 mg PO BID 05/24/13 06/21/15 05/23/13 14:00 AtorvaSTATin [Lipitor] 40 mg PO HS 06/21/15 06/21/15 Unknown Previous Rx's Medication Instructions Recorded Last Taken Type Ibuprofen [Motrin] 800 mg PO Q8H PRN #30 tablet 07/28/14 Unknown Rx methOCARBAMOL [Robaxin] 500 mg PO BID #10 tab 07/28/14 Unknown Rx traMADol [Ultram] 50 mg PO Q6HR PRN #14 tablet 07/28/14 Unknown Rx Docusate Sodium [Colace] 100 mg PO BID PRN #20 capsule 06/21/15 Unknown Rx HYDROcodone/APAP 5-325 [[place] 1 each PO Q6HR PRN #20 tablet 06/21/15 Unknown Rx 5/325] Omeprazole [PriLOSEC] 40 mg PO QDAY #30 cap 06/21/15 Unknown Rx Ondansetron [Zofran Odt] 4 mg PO Q8HR PRN #20 tab.rapdis 06/21/15 Unknown Rx traMADol [Ultram 50 MG tab] 50 mg PO Q6HR PRN #20 tablet 06/21/15 Unknown Rx Sucralfate [Carafate] 1 gm PO ACHS #28 tablet 06/12/16 Unknown Rx Lisinopril [Zestril TAB] 40 mg PO QDAY #40 tablet 04/19/18 Unknown Rx Mag Hydrox/Aluminum Hyd/Simeth 30 ml PO QID PRN #1 bottle 04/19/18 Unknown Rx [Maalox Advanced Suspension] Pantoprazole [Protonix TAB] 40 mg PO QDAY #30 tablet 04/19/18 Unknown Rx glipiZIDE [glipiZIDE ER] 5 mg PO QAM #40 tab.er.24 04/19/18 Unknown Rx metFORMIN [Glucophage] 500 mg PO BID #40 tablet 04/19/18 Unknown Rx Docusate Sodium [Colace] 100 mg PO BID PRN #20 capsule 10/15/18 Unknown Rx Omeprazole 20 mg PO DAILY #30 tab.rap.dr 10/15/18 Unknown Rx Polyethylene Glycol 3350 [Miralax] 7 gm PO DAILY PRN #1 powder 10/15/18 Unknown Rx Sucralfate [Carafate] 1 gm PO ACHS 7 Days #7 tablet 10/15/18 Unknown Rx metFORMIN [Glucophage] 1,000 mg PO BID #60 tablet 10/15/18 Unknown Rx Allergies Allergy/AdvReac Type Severity Reaction Status Date / Time No Known Allergies Allergy Verified 10/15/18 13:00 ED Review of Systems ROS: Stated complaint: CHEST PAIN/STOMACH PAIN Other details as noted in HPI Comment: All other systems reviewed and negative ED Past Medical Hx - Past Medical History Previous Medical History?: Yes Hx Hypertension: Yes Hx Diabetes: Yes Hx Psychiatric Treatment: Yes (ANXIETY) Additional medical history: h. pylori infection 5 years ago, pancreatitis, hi cholest - Surgical History Past Surgical History?: Yes Additional Surgical History: csection X 2. carpal tunnel - Social History Smoking Status: Current Every Day Smoker Substance Use Type: Alcohol - Medications Home Medications: Home Medications Medication Instructions Recorded Confirmed Last Taken Type Citalopram [celeXA] 20 mg PO QDAY 05/24/13 06/21/15 05/23/13 14:00 History Metformin HCl [Glumetza] 1,000 mg PO BID 05/24/13 06/21/15 05/23/13 14:00 History Ibuprofen [Motrin] 800 mg PO Q8H PRN #30 tablet 07/28/14 06/21/15 Unknown Rx methOCARBAMOL [Robaxin] 500 mg PO BID #10 tab 07/28/14 06/21/15 Unknown Rx traMADol [Ultram] 50 mg PO Q6HR PRN #14 tablet 07/28/14 06/21/15 Unknown Rx AtorvaSTATin [Lipitor] 40 mg PO HS 06/21/15 06/21/15 Unknown History Docusate Sodium [Colace] 100 mg PO BID PRN #20 capsule 06/21/15 Unknown Rx HYDROcodone/APAP 5-325 [[place] 1 each PO Q6HR PRN #20 tablet 06/21/15 Unknown Rx 5/325] Omeprazole [PriLOSEC] 40 mg PO QDAY #30 cap 06/21/15 Unknown Rx Ondansetron [Zofran Odt] 4 mg PO Q8HR PRN #20 tab.rapdis 06/21/15 Unknown Rx traMADol [Ultram 50 MG tab] 50 mg PO Q6HR PRN #20 tablet 06/21/15 Unknown Rx Sucralfate [Carafate] 1 gm PO ACHS #28 tablet 06/12/16 Unknown Rx Lisinopril [Zestril TAB] 40 mg PO QDAY #40 tablet 04/19/18 Unknown Rx Mag Hydrox/Aluminum Hyd/Simeth 30 ml PO QID PRN #1 bottle 04/19/18 Unknown Rx [Maalox Advanced Suspension] Pantoprazole [Protonix TAB] 40 mg PO QDAY #30 tablet 04/19/18 Unknown Rx glipiZIDE [glipiZIDE ER] 5 mg PO QAM #40 tab.er.24 04/19/18 Unknown Rx metFORMIN [Glucophage] 500 mg PO BID #40 tablet 04/19/18 Unknown Rx Docusate Sodium [Colace] 100 mg PO BID PRN #20 capsule 10/15/18 Unknown Rx Omeprazole 20 mg PO DAILY #30 tab.rap.dr 10/15/18 Unknown Rx Polyethylene Glycol 3350 [Miralax] 7 gm PO DAILY PRN #1 powder 10/15/18 Unknown Rx Sucralfate [Carafate] 1 gm PO ACHS 7 Days #7 tablet 10/15/18 Unknown Rx metFORMIN [Glucophage] 1,000 mg PO BID #60 tablet 10/15/18 Unknown Rx ED Physical Exam - General Limitations: No Limitations General appearance: alert, in no apparent distress - Head Head exam: Present: atraumatic, normocephalic - Eye Eye exam: Present: normal appearance - ENT ENT exam: Present: mucous membranes moist - Respiratory Respiratory exam: Present: normal lung sounds bilaterally. Absent: respiratory distress, wheezes, rales, rhonchi, stridor, chest wall tenderness, accessory muscle use, decreased breath sounds, prolonged expiratory - Cardiovascular Cardiovascular Exam: Present: regular rate, normal rhythm, normal heart sounds. Absent: systolic murmur, diastolic murmur, rubs, gallop - GI/Abdominal GI/Abdominal exam: Present: soft, normal bowel sounds. Absent: distended, tenderness, guarding, rebound, rigid - Neurological Exam Neurological exam: Present: alert, oriented X3 - Psychiatric Psychiatric exam: Present: normal affect, normal mood - Skin Skin exam: Present: warm, dry, intact ED Course Vital Signs 10/15/18 10/15/18 10/15/18 13:10 19:40 21:32 Temperature 98.4 F 98.6 F Pulse Rate 97 H 86 Respiratory 18 18 18 Rate Blood Pressure 149/80 Blood Pressure 142/79 [Right] O2 Sat by Pulse 99 98 Oximetry ED Medical Decision Making - Lab Data Result diagrams: 10/15/18 13:20 10/15/18 13:20 Lab Results 10/15/18 10/15/18 10/15/18 Range/Units 13:20 13:20 13:50 WBC 10.1 (4.5-11.0) K/mm3 RBC 5.75 H (3.65-5.03) M/mm3 Hgb 16.2 H (10.1-14.3) gm/dl Hct 50.2 H (30.3-42.9) % MCV 87 (79-97) fl MCH 28 (28-32) pg MCHC 32 (30-34) % RDW 13.1 L (13.2-15.2) % Plt Count 274 (140-440) K/mm3 Lymph % (Auto) 28.8 (13.4-35.0) % Sanders % (Auto) 7.8 H (0.0-7.3) % Eos % (Auto) 0.8 (0.0-4.3) % Baso % (Auto) 1.0 (0.0-1.8) % Lymph # 2.9 (1.2-5.4) K/mm3 Sanders # 0.8 (0.0-0.8) K/mm3 Eos # 0.1 (0.0-0.4) K/mm3 Baso # 0.1 (0.0-0.1) K/mm3 Seg Neutrophils % 61.6 (40.0-70.0) % Seg Neutrophils # 6.3 (1.8-7.7) K/mm3 Sodium 135 L (137-145) mmol/L Potassium 4.0 (3.6-5.0) mmol/L Chloride 95.5 L (98-107) mmol/L Carbon Dioxide 28 (22-30) mmol/L Anion Gap 16 mmol/L BUN 15 (7-17) mg/dL Creatinine 0.7 (0.7-1.2) mg/dL Estimated GFR > 60 ml/min BUN/Creatinine Ratio 21 % Glucose 393 H (65-100) mg/dL Calcium 9.4 (8.4-10.2) mg/dL Total Bilirubin 0.50 (0.1-1.2) mg/dL AST 10 (5-40) units/L ALT 10 (7-56) units/L Alkaline Phosphatase 105 (35-129) units/L Troponin T (0.00-0.029) ng/mL Total Protein 8.1 (6.3-8.2) g/dL Albumin 4.2 (3.9-5) g/dL Albumin/Globulin Ratio 1.1 % Lipase 56 (13-60) units/L Urine Color Yellow (Yellow) Urine Turbidity Slightly-cloudy (Clear) Urine pH 5.0 (5.0-7.0) Ur Specific [place] 1.037 H (1.003-1.030) Urine Protein <15 mg/dl (Negative) mg/dL Urine Glucose (UA) >=500 (Negative) mg/dL Urine Ketones 20 (Negative) mg/dL Urine Blood Sm (Negative) Urine Nitrite Neg (Negative) Urine Bilirubin Neg (Negative) Urine Urobilinogen < 2.0 (<2.0) mg/dL Ur Leukocyte Esterase Neg (Negative) Urine WBC (Auto) 6.0 (0.0-6.0) /HPF Urine RBC (Auto) 3.0 (0.0-6.0) /HPF U Epithel Cells (Auto) 6.0 (0-13.0) /HPF Urine Bacteria (Auto) 3+ (Negative) /HPF Urine Mucus Few /HPF 10/15/18 Range/Units 18:47 WBC (4.5-11.0) K/mm3 RBC (3.65-5.03) M/mm3 Hgb (10.1-14.3) gm/dl Hct (30.3-42.9) % MCV (79-97) fl MCH (28-32) pg MCHC (30-34) % RDW (13.2-15.2) % Plt Count (140-440) K/mm3 Lymph % (Auto) (13.4-35.0) % Sanders % (Auto) (0.0-7.3) % Eos % (Auto) (0.0-4.3) % Baso % (Auto) (0.0-1.8) % Lymph # (1.2-5.4) K/mm3 Sanders # (0.0-0.8) K/mm3 Eos # (0.0-0.4) K/mm3 Baso # (0.0-0.1) K/mm3 Seg Neutrophils % (40.0-70.0) % Seg Neutrophils # (1.8-7.7) K/mm3 Sodium (137-145) mmol/L Potassium (3.6-5.0) mmol/L Chloride (98-107) mmol/L Carbon Dioxide (22-30) mmol/L Anion Gap mmol/L BUN (7-17) mg/dL Creatinine (0.7-1.2) mg/dL Estimated GFR ml/min BUN/Creatinine Ratio % Glucose (65-100) mg/dL Calcium (8.4-10.2) mg/dL Total Bilirubin (0.1-1.2) mg/dL AST (5-40) units/L ALT (7-56) units/L Alkaline Phosphatase (35-129) units/L Troponin T < 0.010 (0.00-0.029) ng/mL Total Protein (6.3-8.2) g/dL Albumin (3.9-5) g/dL Albumin/Globulin Ratio % Lipase (13-60) units/L Urine Color (Yellow) Urine Turbidity (Clear) Urine pH (5.0-7.0) Ur Specific [place] (1.003-1.030) Urine Protein (Negative) mg/dL Urine Glucose (UA) (Negative) mg/dL Urine Ketones (Negative) mg/dL Urine Blood (Negative) Urine Nitrite (Negative) Urine Bilirubin (Negative) Urine Urobilinogen (<2.0) mg/dL Ur Leukocyte Esterase (Negative) Urine WBC (Auto) (0.0-6.0) /HPF Urine RBC (Auto) (0.0-6.0) /HPF U Epithel Cells (Auto) (0-13.0) /HPF Urine Bacteria (Auto) (Negative) /HPF Urine Mucus /HPF - Radiology Data Radiology results: report reviewed ACUTE ABDOMINAL SERIES INDICATION / CLINICAL INFORMATION: epigastric pain, mucus production. COMPARISON: None FINDINGS: Bowel gas pattern is nonspecific, certainly not indicative of obstruction. There is considerable fecal material throughout the colon, with dense appearing feces in the left and transverse colon, suggesting constipation. No free air or obvious abnormal mass or calcification. Accompanying chest radiograph shows no acute disease. IMPRESSION: Probable constipation. Otherwise negative study. Signer Name: Puneet Berg MD Signed: 10/15/2018 7:37 PM Workstation Name: [id number] - Medical Decision Making Patient is a 58-year-old female presents to the emergency room with complaints of epigastric abdominal pain that radiates to the chest that began 2 weeks ago. she describes the pain as a burning sensation. She states she has been spitting up mucus. she states she has associated nausea and one episode of emesis. She states she has been taking Mucinex and drinking hot tea. she denies any cough or fever. She states she has felt constipated and had a small bowel movement today. She has a past medical history of acid reflux and H. pylori but is not currently on any medications. She does not have a GI doctor. She has a past medical history of hypertension and diabetes. States she takes metformin and glipizide for her diabetes. She states she was on insulin but could no longer afford it so her doctor placed her on the oral medications. VSS. blood glucose 393 otherwise labs are stable. no abd tenderness on exam. abd XR with chest: Bowel gas pattern is nonspecific, certainly not indicative of obstruction. There is considerable fecal material throughout the colon, with dense appearing feces in the left and transverse colon, suggesting constipation. No free air or obvious abnormal mass or calcification. Accompanying chest radiograph shows no acute disease. pt given 2L of fluids, GI cocktail, protonix, bentyl, toradol, and 7 units of subcutaneous insulin. BG improved to the 320s per nurse. pt given prescription for colace, miralax, carafate, omeprazole. pt symptoms most likely to due GERD/constipation. pt states that she also ran out of her metformin, most likely the cause of her elevated blood glucose. advised pt to please take medication as prescribed. drink plenty of water. Please follow-up with a primary care doctor and GI doctor in the next 2-3 days. Please eat a low sugar and low carbohydrate diet. Please take your blood sugar regularly. Return to the emergency room for any new or worsening symptoms. - Differential Diagnosis GERD, constipation, PUD, gastritis Critical care attestation.: If time is entered above; I have spent that time in minutes in the direct care of this critically ill patient, excluding procedure time. ED Disposition Clinical Impression: Hyperglycemia Abdominal pain Qualifiers: Abdominal location: epigastric Qualified Code(s): R10.13 - Epigastric pain GERD (gastroesophageal reflux disease) Qualifiers: Esophagitis presence: without esophagitis Qualified Code(s): K21.9 - Gastro-es ophageal reflux disease without esophagitis Constipation Qualifiers: Constipation type: unspecified constipation type Qualified Code(s): K59.00 - Constipation, unspecified Disposition: DC-01 TO HOME OR SELFCARE Is pt being admited?: No Does the pt Need Aspirin: No Condition: Stable Instructions: Constipation (ED), High Fiber Diet (ED), Diet for Ulcers and Gastritis (ED), Gastroesophageal Reflux Disease (ED), Abdominal Pain (ED) Additional Instructions: Please take medication as prescribed. drink plenty of water. Please follow-up with a primary care doctor and GI doctor in the next 2-3 days. Please eat a low sugar and low carbohydrate diet. Please take your blood sugar regularly. Return to the emergency room for any new or worsening symptoms. Prescriptions: Sucralfate [Carafate] 1 gm PO ACHS 7 Days #7 tablet Docusate Sodium [Colace] 100 mg PO BID PRN #20 capsule PRN Reason: Constipation metFORMIN [Glucophage] 1,000 mg PO BID #60 tablet Polyethylene Glycol 3350 [Miralax] 7 gm PO DAILY PRN #1 powder PRN Reason: Constipation Omeprazole 20 mg PO DAILY #30 tab.rap. Referrals: STEFANY VALDEZALLENDALE MD BESSY [Primary Care Provider] - 2-3 Days [facility] [Provider Group] - 2-3 Days Time of Disposition: 21:38 Print Language: MONGOLIAN
== END 2018-10-15 22:33 | disposition home or self-care (01) ==
LOC: ED 12:53
DX: E11.65 Type 2 diabetes mellitus with hyperglycemia (principal); K21.9 Gastro-esophageal reflux disease without esophagitis
CPT/HCPCS: 36415; 74022; 80053; 81001; 82962; 83690; 84484; 85025; 93005; 93010; 96361; 96372; 96374; 96375; 99284; C9113; J0500; J1885; J7030; J1815

== ENCOUNTER 2018-10-21 08:06 | Emergency (ER) | payer SELFPAY ==
[2018-10-21 08:13] VITALS: BP 154/81
[2018-10-21 08:41] LABS: Basophils # (Auto) 0.1 K/mm3 (0.0-0.1); Basophils % (Auto) 0.9 % (0.0-1.8); Eosinophils # (Auto) 0.1 K/mm3 (0.0-0.4); Eosinophils % (Auto) 0.7 % (0.0-4.3); Hematocrit 47.8 % (30.3-42.9); Hemoglobin 16.1 gm/dl (10.1-14.3); Lymphocytes # (Auto) 2.9 K/mm3 (1.2-5.4); Lymphocytes % (Auto) 25.2 % (13.4-35.0); Mean Corpuscular HGB Conc 34 % (30-34); Mean Corpuscular Volume 85 fl (79-97); Monocytes # (Auto) 0.8 K/mm3 (0.0-0.8); Monocytes % (Auto) 7.2 % (0.0-7.3); Platelet Count 267 K/mm3 (140-440); Red Blood Count 5.63 M/mm3 (3.65-5.03); Red Cell Distribution Width 13.1 % (13.2-15.2)
[2018-10-21 08:58] LABS: Bacteria,Urine 1+ /HPF (Negative); Bilirubin,Urine NEG (Negative); Blood,Urine NEG (Negative); Color,Urine Yellow (Yellow); Mucus,Urine FEW /HPF; Urobilinogen,Urine < 2.0 mg/dL (<2.0)
[2018-10-21 09:04] LABS: Alanine Aminotransferase 11 units/L (7-56); Albumin 4.3 g/dL (3.9-5); BUN/Creatinine Ratio 16; Blood Urea Nitrogen 11 mg/dL (7-17); Calcium 9.6 mg/dL (8.4-10.2); Hemolysis Index 6
[2018-10-21] MEDS ORDERED: NACL 0.9% 1000 ML 1,000 ML IV ONE (09:08)
[2018-10-21] MEDS ORDERED: TORADOL IV ONE (09:21)
--- NOTE | 2018-10-21 09:39 | Emergency Department Report ---
ED Abdominal Pain HPI - General Chief Complaint: Abdominal Pain Stated Complaint: SIDE PAIN Time Seen by Provider: 10/21/18 08:30 Source: patient Mode of arrival: Ambulatory Limitations: No Limitations - History of Present Illness Initial Comments: This is a 58-year-old female with a history of diabetes currently taking metformin and not taking insulin due to the fact she is out of insurance issues unable to afford her insulin presents to the ED complaining of upper abdominal pain as left-sided back pain that has been going on for the past 2 weeks and not getting better. Patient was evaluated here on the and was sent home with medication. Patient states that she's been taking the medication she was monitored and has not had any relief. She denies fevers chills/nausea vomiting or diarrhea. MD Complaint: abdominal pain, flank pain - Related Data Home Medications Medication Instructions Recorded Confirmed Last Taken Citalopram [celeXA] 20 mg PO QDAY 05/24/13 06/21/15 05/23/13 14:00 Metformin HCl [Glumetza] 1,000 mg PO BID 05/24/13 06/21/15 05/23/13 14:00 AtorvaSTATin [Lipitor] 40 mg PO HS 06/21/15 06/21/15 Unknown Previous Rx's Medication Instructions Recorded Last Taken Type Ibuprofen [Motrin] 800 mg PO Q8H PRN #30 tablet 07/28/14 Unknown Rx methOCARBAMOL [Robaxin] 500 mg PO BID #10 tab 07/28/14 Unknown Rx traMADol [Ultram] 50 mg PO Q6HR PRN #14 tablet 07/28/14 Unknown Rx Docusate Sodium [Colace] 100 mg PO BID PRN #20 capsule 06/21/15 Unknown Rx Omeprazole [PriLOSEC] 40 mg PO QDAY #30 cap 06/21/15 Unknown Rx Ondansetron [Zofran Odt] 4 mg PO Q8HR PRN #20 tab.rapdis 06/21/15 Unknown Rx traMADol [Ultram 50 MG tab] 50 mg PO Q6HR PRN #20 tablet 06/21/15 Unknown Rx Sucralfate [Carafate] 1 gm PO ACHS #28 tablet 06/12/16 Unknown Rx Lisinopril [Zestril TAB] 40 mg PO QDAY #40 tablet 04/19/18 Unknown Rx Mag Hydrox/Aluminum Hyd/Simeth 30 ml PO QID PRN #1 bottle 04/19/18 Unknown Rx [Maalox Advanced Suspension] Pantoprazole [Protonix TAB] 40 mg PO QDAY #30 tablet 04/19/18 Unknown Rx glipiZIDE [glipiZIDE ER] 5 mg PO QAM #40 tab.er.24 04/19/18 Unknown Rx metFORMIN [Glucophage] 500 mg PO BID #40 tablet 04/19/18 Unknown Rx Docusate Sodium [Colace] 100 mg PO BID PRN #20 capsule 10/15/18 Unknown Rx Omeprazole 20 mg PO DAILY #30 tab.rap.dr 10/15/18 Unknown Rx Polyethylene Glycol 3350 [Miralax] 7 gm PO DAILY PRN #1 powder 10/15/18 Unknown Rx Sucralfate [Carafate] 1 gm PO ACHS 7 Days #7 tablet 10/15/18 Unknown Rx metFORMIN [Glucophage] 1,000 mg PO BID #60 tablet 10/15/18 Unknown Rx Dicyclomine [Bentyl] 20 mg PO BID #20 tablet 10/21/18 Unknown Rx HYDROcodone/APAP 5-325 [[place] 1 each PO Q6HR PRN #12 tablet 10/21/18 Unknown Rx 5-325 mg TAB] Allergies Allergy/AdvReac Type Severity Reaction Status Date / Time No Known Allergies Allergy Verified 10/21/18 08:07 ED Review of Systems ROS: Stated complaint: SIDE PAIN Other details as noted in HPI Comment: All other systems reviewed and negative ED Past Medical Hx - Past Medical History Hx Hypertension: Yes Hx Diabetes: Yes Hx Psychiatric Treatment: Yes (ANXIETY) Additional medical history: h. pylori infection 5 years ago, pancreatitis, hi cholest - Surgical History Additional Surgical History: csection X 2. carpal tunnel - Social History Smoking Status: Never Smoker - Medications Home Medications: Home Medications Medication Instructions Recorded Confirmed Last Taken Type Citalopram [celeXA] 20 mg PO QDAY 05/24/13 06/21/15 05/23/13 14:00 History Metformin HCl [Glumetza] 1,000 mg PO BID 05/24/13 06/21/15 05/23/13 14:00 History Ibuprofen [Motrin] 800 mg PO Q8H PRN #30 tablet 07/28/14 06/21/15 Unknown Rx methOCARBAMOL [Robaxin] 500 mg PO BID #10 tab 07/28/14 06/21/15 Unknown Rx traMADol [Ultram] 50 mg PO Q6HR PRN #14 tablet 07/28/14 06/21/15 Unknown Rx AtorvaSTATin [Lipitor] 40 mg PO HS 06/21/15 06/21/15 Unknown History Docusate Sodium [Colace] 100 mg PO BID PRN #20 capsule 06/21/15 Unknown Rx Omeprazole [PriLOSEC] 40 mg PO QDAY #30 cap 06/21/15 Unknown Rx Ondansetron [Zofran Odt] 4 mg PO Q8HR PRN #20 tab.rapdis 06/21/15 Unknown Rx traMADol [Ultram 50 MG tab] 50 mg PO Q6HR PRN #20 tablet 06/21/15 Unknown Rx Sucralfate [Carafate] 1 gm PO ACHS #28 tablet 06/12/16 Unknown Rx Lisinopril [Zestril TAB] 40 mg PO QDAY #40 tablet 04/19/18 Unknown Rx Mag Hydrox/Aluminum Hyd/Simeth 30 ml PO QID PRN #1 bottle 04/19/18 Unknown Rx [Maalox Advanced Suspension] Pantoprazole [Protonix TAB] 40 mg PO QDAY #30 tablet 04/19/18 Unknown Rx glipiZIDE [glipiZIDE ER] 5 mg PO QAM #40 tab.er.24 04/19/18 Unknown Rx metFORMIN [Glucophage] 500 mg PO BID #40 tablet 04/19/18 Unknown Rx Docusate Sodium [Colace] 100 mg PO BID PRN #20 capsule 10/15/18 Unknown Rx Omeprazole 20 mg PO DAILY #30 tab.rap.dr 10/15/18 Unknown Rx Polyethylene Glycol 3350 [Miralax] 7 gm PO DAILY PRN #1 powder 10/15/18 Unknown Rx Sucralfate [Carafate] 1 gm PO ACHS 7 Days #7 tablet 10/15/18 Unknown Rx metFORMIN [Glucophage] 1,000 mg PO BID #60 tablet 10/15/18 Unknown Rx Dicyclomine [Bentyl] 20 mg PO BID #20 tablet 10/21/18 Unknown Rx HYDROcodone/APAP 5-325 [[place] 1 each PO Q6HR PRN #12 tablet 10/21/18 Unknown Rx 5-325 mg TAB] ED Physical Exam - General Limitations: No Limitations General appearance: alert, in no apparent distress - Head Head exam: Present: atraumatic, normocephalic - Eye Eye exam: Present: normal appearance - ENT ENT exam: Present: mucous membranes moist - Neck Neck exam: Present: normal inspection - Respiratory Respiratory exam: Present: normal lung sounds bilaterally. Absent: respiratory distress - Cardiovascular Cardiovascular Exam: Present: regular rate, normal rhythm. Absent: systolic murmur, diastolic murmur, rubs, gallop - GI/Abdominal GI/Abdominal exam: Present: soft, tenderness (to palpation of the upper abdomen), normal bowel sounds. Absent: distended, guarding, rebound - Extremities Exam Extremities exam: Present: normal inspection - Back Exam Back exam: Present: normal inspection - Neurological Exam Neurological exam: Present: alert, oriented X3 - Psychiatric Psychiatric exam: Present: normal affect, normal mood - Skin Skin exam: Present: warm, dry, intact, normal color. Absent: rash ED Course Vital Signs 10/21/18 08:11 Temperature 98.1 F Pulse Rate 97 H Respiratory 17 Rate Blood Pressure 154/81 O2 Sat by Pulse 100 Oximetry ED Medical Decision Making - Lab Data Result diagrams: 10/21/18 08:28 10/21/18 08:28 Laboratory Last Values WBC 11.5 K/mm3 (4.5-11.0) H 10/21/18 08:28 RBC 5.63 M/mm3 (3.65-5.03) H 10/21/18 08:28 Hgb 16.1 gm/dl (10.1-14.3) H 10/21/18 08:28 Hct 47.8 % (30.3-42.9) H 10/21/18 08:28 MCV 85 fl (79-97) 10/21/18 08:28 MCH 29 pg (28-32) 10/21/18 08:28 MCHC 34 % (30-34) 10/21/18 08:28 RDW 13.1 % (13.2-15.2) L 10/21/18 08:28 Plt Count 267 K/mm3 (140-440) 10/21/18 08:28 Lymph % (Auto) 25.2 % (13.4-35.0) 10/21/18 08:28 [place] % (Auto) 7.2 % (0.0-7.3) 10/21/18 08:28 Eos % (Auto) 0.7 % (0.0-4.3) 10/21/18 08:28 Baso % (Auto) 0.9 % (0.0-1.8) 10/21/18 08:28 Lymph # 2.9 K/mm3 (1.2-5.4) 10/21/18 08:28 [place] # 0.8 K/mm3 (0.0-0.8) 10/21/18 08:28 Eos # 0.1 K/mm3 (0.0-0.4) 10/21/18 08:28 Baso # 0.1 K/mm3 (0.0-0.1) 10/21/18 08:28 Seg Neutrophils % 66.0 % (40.0-70.0) 10/21/18 08:28 Seg Neutrophils # 7.6 K/mm3 (1.8-7.7) 10/21/18 08:28 Sodium 134 mmol/L (137-145) L 10/21/18 08:28 Potassium 3.8 mmol/L (3.6-5.0) 10/21/18 08:28 Chloride 91.5 mmol/L (98-107) L 10/21/18 08:28 Carbon Dioxide 28 mmol/L (22-30) 10/21/18 08:28 18 mmol/L 10/21/18 08:28 BUN 11 mg/dL (7-17) 10/21/18 08:28 0.7 mg/dL (0.7-1.2) 10/21/18 08:28 Estimated GFR > 60 ml/min 10/21/18 08:28 16 % 10/21/18 08:28 Glucose 336 mg/dL (65-100) H 10/21/18 08:28 Calcium 9.6 mg/dL (8.4-10.2) 10/21/18 08:28 0.60 mg/dL (0.1-1.2) 10/21/18 08:28 AST 11 units/L (5-40) 10/21/18 08:28 ALT 11 units/L (7-56) 10/21/18 08:28 100 units/L (35-129) 10/21/18 08:28 7.9 g/dL (6.3-8.2) 10/21/18 08:28 4.3 g/dL (3.9-5) 10/21/18 08:28 1.2 % 10/21/18 08:28 Yellow (Yellow) 10/21/18 Unknown Clear (Clear) 10/21/18 Unknown 5.0 (5.0-7.0) 10/21/18 Unknown Ur Specific [place] 1.035 (1.003-1.030) H 10/21/18 Unknown 30 mg/dl mg/dL (Negative) 10/21/18 Unknown >=500 mg/dL (Negative) 10/21/18 Unknown 80 mg/dL (Negative) 10/21/18 Unknown Neg (Negative) 10/21/18 Unknown Neg (Negative) 10/21/18 Unknown Neg (Negative) 10/21/18 Unknown < 2.0 mg/dL (<2.0) 10/21/18 Unknown Ur Leukocyte Esterase Neg (Negative) 10/21/18 Unknown 2.0 /HPF (0.0-6.0) 10/21/18 Unknown 3.0 /HPF (0.0-6.0) 10/21/18 Unknown U Epithel Cells (Auto) 3.0 /HPF (0-13.0) 10/21/18 Unknown 1+ /HPF (Negative) 10/21/18 Unknown Few /HPF 10/21/18 Unknown - Radiology Data Radiology results: report reviewed, image reviewed CT ABDOMEN AND PELVIS WITH CONTRAST HISTORY: Left abdomen and back pain. COMPARISON: 06/12/2016 TECHNIQUE: Axial CT images were obtained through the abdomen and pelvis after 100 cc of Omnipaque 300 intravenously. Sagittal and coronal reformatted images. All CT scans at this location are performed using CT dose reduction for ALARA by means of automated exposure control. FINDINGS: CT ABDOMEN: Lung Bases: Clear. Liver: No significant abnormality. Biliary: No significant abnormality. Spleen: No significant abnormality. Unenlarged. Pancreas: There is subtle fat stranding and trace fluid surrounding the tail the pancreas suggesting early acute pancreatitis. There is no obvious pancreatic mass or pseudocyst on this single contrast exam. Similar findings are noted on the previous exam. Adrenals: No significant abnormality. Kidneys: No significant abnormality. Lymphatics: No lymphadenopathy. Vasculature: No significant abnormality. Bowel/Peritoneum: No significant abnormality. No free air. No free fluid. Normal appendix. CT PELVIS: : No significant abnormality. Osseous Structures: No significant abnormality. Additional Findings: None IMPRESSION: Findings consistent with early acute pancreatitis. Signer Name: Javier Spence Jr, MD Signed: 10/21/2018 10:56 AM Workstation Name: [id number] Transcribed By: TTR Dictated By: JAVIER SPENCE JR, MD Electronically Authenticated By: JAVIER SPENCE JR, MD Signed Date/Time: 10/21/18 1056 - Medical Decision Making 58-year-old female presents with abdominal and flank pain that is most likely due to constipation as diagnosed 6 days ago. Upon examination patient is nontender in the abdomen. Patient did have a histor y of acute pancreatitis 2 and Half Years Ago. Patient states that this is not the same type of pain. Patient was sent home on pain medication. Discussed the patient to continue taking the medications and complete the medication she's got 6 days ago. Patient is in no acute distress. Patient's discomfort due to pain but otherwise she looks healthy. Patient reports feeling much better after demonstration of pain medication ED and 1 L of fluids. Based on evaluation of patient patient states stable enough to go home on pain control and complete medication she was prescribed earlier. Case was discussed with attending Dr. Wilda Mattson who evaluated the patient as well and agrees with the decision to follow up outpatient . Patient states on the side and instructions and will follow-up. Discussed the patient's symptoms worsen or new symptoms arise and she may return to the ED Critical care attestation.: If time is entered above; I have spent that time in minutes in the direct care of this critically ill patient, excluding procedure time. ED Disposition Clinical Impression: Constipation, Abdominal pain Disposition: DC-01 TO HOME OR SELFCARE Is pt being admited?: No Does the pt Need Aspirin: No Condition: Stable Instructions: Abdominal Pain (ED), Soft Diet (ED), Clear Liquid Diet (ED) Additional Instructions: Make sure to follow up with the primary care physician as discussed. Take all your medications as you've been prescribed. If you have any worsening symptoms or develop new symptoms please return to ED immediately. Prescriptions: Dicyclomine [Bentyl] 20 mg PO BID #20 tablet HYDROcodone/APAP 5-325 [[place] 5-325 mg TAB] 1 each PO Q6HR PRN #12 tablet PRN Reason: Pain Referrals: JUAN RICO MD [Primary Care Provider] - 3-5 Days [facility] [Provider Group] - 3-5 Days [facility] [Provider Group] - 3-5 Days Forms: Work/School Release Form(ED) Time of Disposition: 12:37
--- NOTE | 2018-10-21 11:00 | Cat Scan Report ---
CT ABDOMEN AND PELVIS WITH CONTRAST HISTORY: Left abdomen and back pain. COMPARISON: 06/12/2016 TECHNIQUE: Axial CT images were obtained through the abdomen and pelvis after 100 cc of Omnipaque 300 intravenously. Sagittal and coronal reformatted images. All CT scans at this location are performed using CT dose reduction for ALARA by means of automated exposure control. FINDINGS: CT ABDOMEN: Lung Bases: Clear. Liver: No significant abnormality. Biliary: No significant abnormality. Spleen: No significant abnormality. Unenlarged. Pancreas: There is subtle fat stranding and trace fluid surrounding the tail the pancreas suggesting early acute pancreatitis. There is no obvious pancreatic mass or pseudocyst on this single contrast e xam. Similar findings are noted on the previous exam. Adrenals: No significant abnormality. Kidneys: No significant abnormality. Lymphatics: No lymphadenopathy. Vasculature: No significant abnormality. Bowel/Peritoneum: No significant abnormality. No free air. No free fluid. Normal appendix. CT PELVIS: : No significant abnormality. Osseous Structures: No significant abnormality. Additional Findings: None IMPRESSION: Findings consistent with early acute pancreatitis. Signer Name: Javier Terry Jr, MD Signed: 10/21/2018 10:56 AM Workstation Name: [id number]
== END 2018-10-21 12:45 | disposition home or self-care (01) ==
LOC: ED 08:06
DX: K59.00 Constipation, unspecified (principal); I10 Essential (primary) hypertension; E11.9 Type 2 diabetes mellitus without complications; F41.9 Anxiety disorder, unspecified; E78.00 Pure hypercholesterolemia, unspecified; Z79.899 Other long term (current) drug therapy
CPT/HCPCS: 36415; 74177; 80053; 81001; 83690; 85025; 96374; 99284; J1885; J7030; Q9967

== ENCOUNTER 2020-06-15 09:33 | Outpatient (CLI) | payer OTHER ==
--- NOTE | 2020-06-15 10:41 | XRay Report ---
LUMBAR SPINE 3 VIEWS INDICATION: Fibromyalgia. COMPARISON: CT abdomen and pelvis with contrast performed on 10/21/2018. FINDINGS: VERTEBRAE: No acute fracture. Normal alignment. DISC SPACES: No significant abnormality. FACET JOINTS: No significant abnormality. SOFT TISSUES: No significant abnormality. ADDITIONAL FINDINGS: No additional significant findings. IMPRESSION: No significant abnormality of the lumbar spine. Signer Name: Sandeep Flowers MD Signed: 06/15/2020 10:34 AM Workstation Name: [id number]
== END 2020-06-15 09:34 | disposition home or self-care (01) ==
LOC: XRAY 09:33
PROVIDERS: ATTEND Internal Medicine
DX: M79.7 Fibromyalgia (principal); E11.9 Type 2 diabetes mellitus without complications; F41.9 Anxiety disorder, unspecified; H53.40 Unspecified visual field defects; I10 Essential (primary) hypertension; M19.09 Primary osteoarthritis, other specified site
CPT/HCPCS: 72100

== ENCOUNTER 2020-08-13 18:07 | Observation (INO) | payer OTHER ==
--- NOTE | 2020-08-13 18:17 | Emergency Department Report ---
Blank Doc - Documentation Documentation: 60-year-old female that presents with worsening midsternal chest pain and shor tness of breath. 1-This is a initial triage assessment/medical screening only. Full assessment and work-up will be completed once the patient is in proper hospital gown, ED bed and in a private room setting. This initial assessment/diagnostic orders/clinical plan/ treatment(s) is/are subject to change based on pt's health status, clinical progression and re-assessment by fellow clinical providers in the ED. Further treatment and workup at subsequent clinical providers discretion. Patient/guardians urged not to elope from ED as their condition may be serious if not clinically assessed and managed. 2-cardiac work-up initiated 3-devulcanizer charger notified of patient to be brought back as soon as possible.
[2020-08-13 18:51] LABS: Basophils # (Auto) 0.1 K/mm3 (0.0-0.1); Basophils % (Auto) 1.4 % (0.0-1.8); Eosinophils # (Auto) 0.1 K/mm3 (0.0-0.4); Eosinophils % (Auto) 0.8 % (0.0-4.3); Hematocrit 48.2 % (30.3-42.9); Lymphocytes # (Auto) 3.5 K/mm3 (1.2-5.4); Lymphocytes % (Auto) 35.5 % (13.4-35.0); Mean Corpuscular HGB Conc 33 % (30-34); Mean Corpuscular Volume 87 fl (79-97); Monocytes # (Auto) 0.7 K/mm3 (0.0-0.8); Monocytes % (Auto) 6.7 % (0.0-7.3); Platelet Count 254 K/mm3 (140-440); Red Blood Count 5.57 M/mm3 (3.65-5.03)
[2020-08-13 18:59] LABS: Alanine Aminotransferase 11 units/L (7-56); Albumin 4.4 g/dL (3.9-5); Blood Urea Nitrogen 20 mg/dL (7-17); Calcium 9.6 mg/dL (8.4-10.2); Hemolysis Index 20
[2020-08-13 19:00] LABS: INR 0.88 (0.87-1.13)
[2020-08-13 19:01] LABS: Partial Thromboplastin Time 26.2 Sec. (24.2-36.6)
[2020-08-13 19:02] LABS: BUN/Creatinine Ratio 29
--- NOTE | 2020-08-13 20:07 | XRay Report ---
CHEST 2 VIEWS INDICATION / CLINICAL INFORMATION: Chest Pain. COMPARISON: 04/19/2018 FINDINGS: SUPPORT DEVICES: None. HEART / MEDIASTINUM: Stable. LUNGS / PLEURA: No significant pulmonary or pleural abnormality. No pneumothorax. ADDITIONAL FINDINGS: No significant additional findings. IMPRESSION: 1. No acute findings. Signer Name: Chago Vázquez MD Signed: 08/13/2020 8:03 PM Workstation Name: [id number]
[2020-08-14] MEDS ORDERED: SODIUM CHLORIDE 0.9% 1000 ML 1,000 ML IV ONE (07:46)
--- NOTE | 2020-08-14 07:53 | Emergency Department Report ---
Blank Doc - Documentation Documentation: Patient was seen by me yesterday and upon arrival of my shift today patient is still in the waiting room. I rexamined pt and patient still has SOB and chest pains. aircraft assembler notified tp have patient be brought back JB. EKG ordered. Vitals to be done by RN. Consulted with Dr. Russo and patient history, physical exam, and labs/ekg and agrees for CTA. Patient transferee to main ED for further evaluation and treatment by provider.
--- NOTE | 2020-08-14 08:13 | Emergency Department Report ---
HPI - General Chief Complaint: Chest Pain Time Seen by Provider: 08/13/20 18:12 - HPI HPI: Room 4 The patient is a 60-year-old female present with a chief complaint of chest pain. Patient states for the past 2 weeks she has had an intermittent/waxing a nd waning substernal chest pain described as aching in nature. Patient admits to shortness of breath, diaphoresis and nausea without vomiting associated with the pain. Patient admits to dyspnea on exertion with any little activity such as sweeping the floor or going upstairs. Patient also admits to palpitations during exertion. Patient currently gives her chest pain score of 3/10. Patient states her last stress test occurred approximate 5 years ago but she's never had a cardiac catheterization ED Past Medical Hx - Past Medical History Hx Hypertension: Yes Hx Diabetes: Yes Hx Psychiatric Treatment: Yes (ANXIETY) Additional medical history: h. pylori infection 5 years ago, pancreatitis, hi cholest - Surgical History Additional Surgical History: csection X 2. carpal tunnel - Family History Family history: no significant - Social History Smoking Status: Current Every Day Smoker (1 pack/day) Substance Use Type: None (Denies illicit drug use) - Medications Home Medications: Home Medications Medication Instructions Recorded Confirmed Last Taken Type Citalopram [celeXA] 20 mg PO QDAY 05/24/13 06/21/15 05/23/13 14:00 History Metformin HCl [Glumetza] 1,000 mg PO BID 05/24/13 06/21/15 05/23/13 14:00 History Ibuprofen [Motrin] 800 mg PO Q8H PRN #30 tablet 07/28/14 06/21/15 Unknown Rx methOCARBAMOL [Robaxin] 500 mg PO BID #10 tab 07/28/14 06/21/15 Unknown Rx traMADoL [Ultram] 50 mg PO Q6HR PRN #14 tablet 07/28/14 06/21/15 Unknown Rx AtorvaSTATin [Lipitor] 40 mg PO HS 06/21/15 06/21/15 Unknown History Docusate Sodium [Colace] 100 mg PO BID PRN #20 capsule 06/21/15 Unknown Rx Omeprazole [PriLOSEC] 40 mg PO QDAY #30 cap 06/21/15 Unknown Rx Ondansetron [Zofran Odt] 4 mg PO Q8HR PRN #20 tab.rapdis 06/21/15 Unknown Rx traMADoL [Ultram 50 MG tab] 50 mg PO Q6HR PRN #20 tablet 06/21/15 Unknown Rx Sucralfate [Carafate] 1 gm PO ACHS #28 tablet 06/12/16 Unknown Rx Mag Hydrox/Aluminum Hyd/Simeth 30 ml PO QID PRN #1 bottle 04/19/18 Unknown Rx [Maalox Advanced Suspension] Pantoprazole [Protonix TAB] 40 mg PO QDAY #30 tablet 04/19/18 Unknown Rx glipiZIDE [glipiZIDE ER] 5 mg PO QAM #40 tab.er.24 04/19/18 Unknown Rx lisinopriL [Zestril TAB] 40 mg PO QDAY #40 tablet 04/19/18 Unknown Rx metFORMIN [Glucophage] 500 mg PO BID #40 tablet 04/19/18 Unknown Rx Docusate Sodium [Colace] 100 mg PO BID PRN #20 capsule 10/15/18 Unknown Rx Omeprazole 20 mg PO DAILY #30 tab.rap.dr 10/15/18 Unknown Rx Polyethylene Glycol 3350 [Miralax] 7 gm PO DAILY PRN #1 powder 10/15/18 Unknown Rx Sucralfate [Carafate] 1 gm PO ACHS 7 Days #7 tablet 10/15/18 Unknown Rx metFORMIN [Glucophage] 1,000 mg PO BID #60 tablet 10/15/18 Unknown Rx Dicyclomine [Bentyl] 20 mg PO BID #20 tablet 10/21/18 Unknown Rx HYDROcodone/APAP 5-325 [Castor 1 each PO Q6HR PRN #12 tablet 10/21/18 Unknown Rx 5-325 mg TAB] ED Review of Systems ROS: Stated complaint: SOB/CHEST PAIN Other details as noted in HPI Constitutional: diaphoresis Eyes: denies: eye pain ENT: denies: throat pain Respiratory: shortness of breath, SOB with exertion Cardiovascular: chest pain, dyspnea on exertion Endocrine: no symptoms reported Gastrointestinal: nausea. denies: vomiting Genitourinary: denies: dysuria Musculoskeletal: denies: back pain Neurological: denies: headache Physical Exam - Physical Exam Vital Signs: Vital Signs 08/13/20 08/14/20 18:16 08:01 Temperature 98.5 F 98.4 F Pulse Rate 123 H 68 Respiratory 32 H 18 Rate Blood Pressure 177/70 Blood Pressure 148/85 [Right] O2 Sat by Pulse 100 98 Oximetry Physical Exam: GENERAL: The patient is well-developed well-nourished female lying on stretcher not appearing to be in acute distress. [] HEENT: Normocephalic. Atraumatic. Extraocular motions are intact. Patient has moist mucous membranes. NECK: Supple. Trachea midline CHEST/LUNGS: Clear to auscultation. There is no respiratory distress noted. HEART/CARDIOVASCULAR: Regular. There is no tachycardia. There is no gallop rub or murmur. ABDOMEN: Abdomen is soft, nontender. Patient has normal bowel sounds. There is no abdominal distention. SKIN: There is no rash. There is no edema. There is no diaphoresis. NEURO: The patient is awake, alert, and oriented. The patient is cooperative. The patient has no focal neurologic deficits. The patient has normal speech MUSCULOSKELETAL:There is no evidence of acute injury. ED Course Vital Signs 08/13/20 08/14/20 18:16 08:01 Temperature 98.5 F 98.4 F Pulse Rate 123 H 68 Respiratory 32 H 18 Rate Blood Pressure 177/70 Blood Pressure 148/85 [Right] O2 Sat by Pulse 100 98 Oximetry ED Medical Decision Making - Lab Data Result diagrams: 08/13/20 18:21 08/13/20 18:21 - EKG Data -: EKG Interpreted by Me EKG shows normal: sinus rhythm Rate: normal - EKG Data When compared to previous EKG there are: previous EKG unavailable Interpretation: nonspecific ST-T wave miguel (T wave inversion lead aVL) - Radiology Data Radiology results: report reviewed (Chest x-ray, CT chest), image reviewed (Chest x-ray, CT chest) interpreted by me: Chest x-ray-no focal infiltrates, no pneumothorax. No foreign body seen [facility] [address] [place] [address] XRay Report Signed Patient: NAREN CAMPBELL MR#: [id number] : 1960 Acct:[id number] Age/Sex: 60 / F ADM Date: 08/13/20 Loc: ED Attending Dr: Ordering Physician: ALLY MG NP Date of Service: 08/13/20 Procedure(s): XR chest routine 2V Accession Number(s): [id number] cc: ALLY MG NP Fluoro Time In Minutes: CHEST 2 VIEWS INDICATION / CLINICAL INFORMATION: Chest Pain. COMPARISON: 04/19/2018 FINDINGS: SUPPORT DEVICES: None. HEART / MEDIASTINUM: Stable. LUNGS / PLEURA: No significant pulmonary or pleural abnormality. No pneumothorax. ADDITIONAL FINDINGS: No significant additional findings. IMPRESSION: 1. No acute findings. Signer Name: Janelle Vázquez MD Signed: 8:03 PM Workstation Name: [id number] Transcribed By: Dictated By: JANELLE VÁZQUEZ III Electronically Authenticated By: JANELLE VÁZQUEZ III Signed Date/Time: 08/13/202002 DD/ 00 TD/TT: Print Cancel [facility] [address] [place] [address] Cat Scan Report Signed Patient: NAREN CAMPBELL MR#: [id number] : 1960 Acct:[id number] Age/Sex: 60 / F ADM Date: 08/13/20 Loc: ED Attending Dr: Yamil rayo Physician: ALLY MG NP Date of Service: 08/14/20 Procedure(s): CT angio chest Accession Number(s): [id number] cc: ALLY MG NP CTA CHEST WITH CONTRAST INDICATION / CLINICAL INFORMATION: chest pain and SOB [id number] 100 ML. TECHNIQUE: Axial CT images were obtained through the chest after injection of IV contrast. 3 plane MIP and/or 3D reconstructions were produced. All CT scans at this location are performed using CT dose reduction for ALARA by means of automated exposure control. COMPARISON: Prior CTA chest 06/12/2016. Recent chest radiograph 08/13/2020. FINDINGS: PULMONARY ARTERIES: No pulmonary emboli. THORACIC AORTA: Mild atherosclerotic calcification without acute abnormality. HEART: No significant abnormality. CORONARY ARTERIES: No significant calcification. MEDIASTINUM / SEVERINO: No significant abnormality. PLEURA: No pleural effusion. No pneumothorax. LUNGS: No acute air space or interstitial disease. ADDITIONAL FINDINGS: None. UPPER ABDOMEN: No acute findings. SKELETAL STRUCTURES: Mild multilevel degenerative changes are noted of the spine. No aggressive osseous lesions. IMPRESSION: 1. No CT evidence for pulmonary embolism. 2. No acute findings. Signer Name: Benny Narvaez MD Signed: 08/14/2020 8:42 AM Workstation Name: [id number] Transcribed By: CH Dictated By: BENNY NARVAEZ Electronically Authenticated By: BENNY NARVAEZ Signed Date/Time: 08/14/20841 DD/ 7 TD/TT: Print Cancel - Differential Diagnosis ACS, PE, pericarditis, GERD Critical care attestation.: If time is entered above; I have spent that time in minutes in the direct care of this critically ill patient, excluding procedure time. ED Disposition Clinical Impression: Chest pain Disposition: OP ADMIT IP TO THIS HOSP Is pt being admited?: Yes Does the pt Need Aspirin: Yes Condition: Fair Instructions: Nonspecific Chest Pain, Adult Referrals: PRIMARY CARE, [Primary Care Provider] - 3-5 Days Time of Disposition: 08:52 (Hospitalist paged (Dr. Berrios)) Heart Score - HEART Score History: Moderately suspicious EKG: Non-specific Age: 45-65 Risk factors: > 3 risk factors or hx of atherosclerotic disease Troponin: < normal limit HEART Score: 5 - EKG Read Time Time EKG Completed: 07:50 EKG Read Time: 07:54
--- NOTE | 2020-08-14 08:46 | Cat Scan Report ---
CTA CHEST WITH CONTRAST INDICATION / CLINICAL INFORMATION: chest pain and SOB [id number] 100 ML. TECHNIQUE: Axial CT images were obtained through the chest after injection of IV contrast. 3 plane MIP and/or 3D reconstructions were produced. All CT scans at this location are performed using CT dose reduction f or ALARA by means of automated exposure control. COMPARISON: Prior CTA chest 06/12/2016. Recent chest radiograph 08/13/2020. FINDINGS: PULMONARY ARTERIES: No pulmonary emboli. THORACIC AORTA: Mild atherosclerotic calcification without acute abnormality. HEART: No significant abnormality. CORONARY ARTERIES: No significant calcification. MEDIASTINUM / SEVERINO: No significant abnormality. PLEURA: No pleural effusion. No pneumothorax. LUNGS: No acute air space or interstitial disease. ADDITIONAL FINDINGS: None. UPPER ABDOMEN: No acute findings. SKELETAL STRUCTURES: Mild multilevel degenerative changes are noted of the spine. No aggressive osseo us lesions. IMPRESSION: 1. No CT evidence for pulmonary embolism. 2. No acute findings. Signer Name: Benny Hines MD Signed: 08/14/2020 8:42 AM Workstation Name: [id number]
[2020-08-14] MEDS ORDERED: NITROGLYCERIN 2% OINT 1 GM TP ONE ×2 (09:17→13:01)
[2020-08-14] MEDS ORDERED: MORPHINE 4 MG/1 ML INJ IV ONE (09:17)
[2020-08-14] MEDS ORDERED: ONDANSETRON 4 MG/2 ML INJ IV ONE (09:17)
[2020-08-14] MEDS ORDERED: ASPIRIN 325 MG TAB PO ONE (09:17)
[2020-08-14] MEDS ORDERED: ONDANSETRON 4 MG/2 ML INJ IV PRN (09:58)
[2020-08-14] MEDS ORDERED: ACETAMINOPHEN 325 MG TAB PO PRN ×2 (09:58→11:00)
--- NOTE | 2020-08-14 10:06 | History and Physical Report ---
History of Present Illness Date of examination: 08/14/20 Date of admission: 08/14/20 09:10 Chief complaint: Chest pain History of present illness: Patient is a 60-year-old female presenting to the hospital with known past medical history of diabetes mellitus, anxiety, hypertension, she has not been compliant with her medications due to insurance purposes are out of her insurance. As a result has not had any of her medications. She presents to the hospital with complaints of 2 weeks she has had an intermittent/waxing and waning substernal chest pain described as aching in nature. Patient admits to shortness of breath, diaphoresis and nausea without vomiting associated with the pain. Patient admits to dyspnea on exertion with any little activity such as s weeping the floor or going upstairs. Patient also admits to palpitations during exertion. Patient currently gives her chest pain score of 3/10. Patient states her last stress test occurred approximate 5 years ago but she's never had a cardiac catheterization Although she is also able to localizes pain to the epigastric area lateral to the right breast bone. She unfortunately continues to use tobacco. Past History Past Medical History: COPD, diabetes, hypertension, hyperlipidemia Past Surgical History: , Other (Carpal tunnel) Social history: no significant social history, lives with family, full code Family history: no significant family history Medications and Allergies Allergies Allergy/AdvReac Type Severity Reaction Status Date / Time No Known Allergies Allergy Verified 08/13/20 18:18 Home Medications Medication Instructions Recorded Confirmed Last Taken Type Citalopram [celeXA] 20 mg PO QDAY 05/24/13 06/21/15 05/23/13 14:00 History Metformin HCl [Glumetza] 1,000 mg PO BID 05/24/13 06/21/15 05/23/13 14:00 History Ibuprofen [Motrin] 800 mg PO Q8H PRN #30 tablet 07/28/14 06/21/15 Unknown Rx methOCARBAMOL [Robaxin] 500 mg PO BID #10 tab 07/28/14 06/21/15 Unknown Rx traMADoL [Ultram] 50 mg PO Q6HR PRN #14 tablet 07/28/14 06/21/15 Unknown Rx AtorvaSTATin [Lipitor] 40 mg PO HS 06/21/15 06/21/15 Unknown History Docusate Sodium [Colace] 100 mg PO BID PRN #20 capsule 06/21/15 Unknown Rx Omeprazole [PriLOSEC] 40 mg PO QDAY #30 cap 06/21/15 Unknown Rx Ondansetron [Zofran Odt] 4 mg PO Q8HR PRN #20 tab.rapdis 06/21/15 Unknown Rx traMADoL [Ultram 50 MG tab] 50 mg PO Q6HR PRN #20 tablet 06/21/15 Unknown Rx Sucralfate [Carafate] 1 gm PO ACHS #28 tablet 06/12/16 Unknown Rx Mag Hydrox/Aluminum Hyd/Simeth 30 ml PO QID PRN #1 bottle 04/19/18 Unknown Rx [Maalox Advanced Suspension] Pantoprazole [Protonix TAB] 40 mg PO QDAY #30 tablet 04/19/18 Unknown Rx glipiZIDE [glipiZIDE ER] 5 mg PO QAM #40 tab.er.24 04/19/18 Unknown Rx lisinopriL [Zestril TAB] 40 mg PO QDAY #40 tablet 04/19/18 Unknown Rx metFORMIN [Glucophage] 500 mg PO BID #40 tablet 04/19/18 Unknown Rx Docusate Sodium [Colace] 100 mg PO BID PRN #20 capsule 10/15/18 Unknown Rx Omeprazole 20 mg PO DAILY #30 tab.rap.dr 10/15/18 Unknown Rx Polyethylene Glycol 3350 [Miralax] 7 gm PO DAILY PRN #1 powder 10/15/18 Unknown Rx Sucralfate [Carafate] 1 gm PO ACHS 7 Days #7 tablet 10/15/18 Unknown Rx metFORMIN [Glucophage] 1,000 mg PO BID #60 tablet 10/15/18 Unknown Rx Dicyclomine [Bentyl] 20 mg PO BID #20 tablet 10/21/18 Unknown Rx HYDROcodone/APAP 5-325 [Melrude 1 each PO Q6HR PRN #12 tablet 10/21/18 Unknown Rx 5-325 mg TAB] Active Meds: Active Medications Acetaminophen (Acetaminophen 325 Mg Tab) 650 mg PO Q4H PRN PRN Reason: Pain MILD(1-3)/Fever >100.5/LEON Acetaminophen (Acetaminophen 325 Mg Tab) 650 mg PO Q4H PRN PRN Reason: Pain, Mild (1-3) Al Hydrox/Mg Hydrox/Simethicone (Alum-Mag Hydroxide-Simethicone 480-066-10ks/5ml Oral Liqd 30 Ml) 30 ml PO QID PRN PRN Reason: Indigestion Albuterol (Albuterol 2.5 Mg/3 Ml Nebu) 2.5 mg IH Q4HRT PRN PRN Reason: Shortness Of Breath Aspirin (Aspirin 81 Mg Tab Chew) 81 mg PO QDAY [facility] Atorvastatin Calcium (Atorvastatin 40 Mg Tab) 40 mg PO QHS [facility] Budesonide (Budesonide 0.5 Mg/2 Ml Nebu) 0.5 mg IH Q12HRT [facility] Citalopram Hydrobromide (Citalopram 20 Mg Tab) 20 mg PO QDAY [facility] Dextrose (Dextrose 50% In Water (25gm) 50 Ml Syringe) 50 ml IV Q30MIN PRN; Prot ocol PRN Reason: Hypoglycemia Dicyclomine HCl (Dicyclomine 20 Mg Tab) 20 mg PO BID [facility] Docusate Sodium (Docusate Sodium 100 Mg Cap) 100 mg PO BID PRN PRN Reason: Constipation Famotidine (Famotidine 20 Mg/2 Ml Inj) 20 mg IV BID [facility] Methocarbamol (Methocarbamol 500 Mg Tab) 500 mg PO BID [facility] Nitroglycerin (Nitroglycerin 0.4 Mg Tab Subl) 0.4 mg SL .Q5MIN PRN PRN Reason: Chest Pain Ondansetron HCl (Ondansetron 4 Mg/2 Ml Inj) 4 mg IV Q4H PRN PRN Reason: Nausea And Vomiting Sodium Chloride (Sodium Chloride 0.9% 10 Ml Flush Syringe) 10 ml IV BID [facility] Sodium Chloride (Sodium Chloride 0.9% 10 Ml Flush Syringe) 10 ml IV PRN PRN PRN Reason: LINE FLUSH Sucralfate (Sucralfate 1 Gm Tab) 1 gm PO ACHS [facility] Valsartan (Valsartan 40 Mg Tab) 40 mg PO BID [facility] Review of Systems All systems: negative Constitutional: lethargy Cardiovascular: chest pain, orthopnea, shortness of breath, dyspnea on exertion, paroxysmal nocturnal dyspnea, no palpitations, no rapid/irregular heart beat, no edema, no syncope, no lightheadedness Gastrointestinal: no abdominal pain, no nausea, no vomiting, no diarrhea, no change in bowel habits, no coffee ground emesis, no melena, no loss of appetite Musculoskeletal: no neck stiffness, no shooting arm pain, no arm numbness/t ingling, no low back pain Integumentary: no pruritis, no wounds Psychiatric: anxiety Exam - Physical Exam Narrative exam: VITAL SIGNS: Reviewed. GENERAL: The patient appears normally developed, morbid obesity vital signs as documented. HEAD: No signs of head trauma. EYES: Pupils are equal. Extraocular motions intact. EARS: Hearing grossly intact. MOUTH: Oropharynx is normal. NECK: No adenopathy, no JVD. CHEST: Chest with clear breath sounds bilaterally. No wheezes, rales, or rhonchi. CARDIAC: Regular rate and rhythm. S1 and S2, without murmurs, gallops, or rubs. VASCULAR: No Edema. Peripheral pulses normal and equal in all extremities. ABDOMEN: Soft, non tender and non distended. No rebound or guarding, and no masses palpated. Bowel Sounds normal. MUSCULOSKELETAL: Good range of motion of all major joints. Extremities without clubbing, cyanosis or edema. NEUROLOGIC EXAM: Alert and oriented x 3 No focal sensory or strength deficits. Speech normal. Follows commands. PSYCHIATRIC: Mood normal. SKIN: detail exam as documented in skin assessment - Constitutional Vitals: Temp Pulse Resp BP Pulse Ox 98.4 F 68 18 148/85 98 08/14/20 08:01 08/14/20 08:01 08/14/20 08:01 08/14/20 08:01 08/14/20 08:01 HEART Score - HEART Score EKG: Non-specific Age: 45-65 Risk factors: > 3 risk factors or hx of atherosclerotic disease Troponin: Troponin T < 0.010 ng/mL (0.00-0.029) 08/13/20 21:03 Troponin: < normal limit Results - Labs CBC & Chem 7: 08/13/20 18:21 08/13/20 18:21 Labs: Laboratory Last Values WBC 9.8 K/mm3 (4.5-11.0) 08/13/20 18:21 RBC 5.57 M/mm3 (3.65-5.03) H 08/13/20 18:21 Hgb 16.0 gm/dl (10.1-14.3) H 08/13/20 18:21 Hct 48.2 % (30.3-42.9) H 08/13/20 18:21 MCV 87 fl (79-97) 08/13/20 18:21 MCH 29 pg (28-32) 08/13/20 18:21 MCHC 33 % (30-34) 08/13/20 18:21 RDW 13.0 % (13.2-15.2) L 08/13/20 18:21 Plt Count 254 K/mm3 (140-440) 08/13/20 18:21 Lymph % (Auto) 35.5 % (13.4-35.0) H 08/13/20 18:21 [place] % (Auto) 6.7 % (0.0-7.3) 08/13/20 18:21 Eos % (Auto) 0.8 % (0.0-4.3) 08/13/20 18: Baso % (Auto) 1.4 % (0.0-1.8) 08/13/20 18:21 Lymph # (Auto) 3.5 K/mm3 (1.2-5.4) 08/13/20 18:21 [place] # (Auto) 0.7 K/mm3 (0.0-0.8) 08/13/20 18:21 Eos # (Auto) 0.1 K/mm3 (0.0-0.4) 08/13/20 18:21 Baso # (Auto) 0.1 K/mm3 (0.0-0.1) 08/13/20 18:21 Seg Neutrophils % 55.6 % (40.0-70.0) 08/13/20 18: Seg Neutrophils # 5.4 K/mm3 (1.8-7.7) 08/13/20 18:21 PT 12.5 Sec. (12.2-14.9) 08/13/20 18:21 INR 0.88 (0.87-1.13) 08/13/20 18:21 APTT 26.2 Sec. (24.2-36.6) 08/13/20 18:21 Sodium 132 mmol/L (137-145) L 08/13/20 18:21 Potassium 4.2 mmol/L (3.6-5.0) 08/13/20 18:21 Chloride 93.2 mmol/L (98-107) L 08/13/20 18:21 Carbon Dioxide 24 mmol/L (22-30) 08/13/20 18:21 Anion Gap 19 mmol/L 08/13/20 18:21 BUN 20 mg/dL (7-17) H 08/13/20 18:21 Creatinine 0.7 mg/dL (0.6-1.2) 08/13/20 18:21 Estimated GFR > 60 ml/min 08/13/20 18:21 BUN/Creatinine Ratio 29 % 08/13/20 18:21 Glucose 298 mg/dL (65-100) H 08/13/20 18:21 Calcium 9.6 mg/dL (8.4-10.2) 08/13/20 18:21 Magnesium 1.80 mg/dL (1.7-2.3) 08/13/20 18:21 Total Bilirubin 0.50 mg/dL (0.1-1.2) 08/13/20 18:21 AST 14 units/L (5-40) 08/13/20 18:21 ALT 11 units/L (7-56) 08/13/20 18:21 Alkaline Phosphatase 110 units/L (35-129) 08/13/20 18:21 Troponin T < 0.010 ng/mL (0.00-0.029) 08/13/20 21:03 Total Protein 7.6 g/dL (6.3-8.2) 08/13/20 18:21 Albumin 4.4 g/dL (3.9-5) 08/13/20 18:21 Albumin/Globulin Ratio 1.4 % 08/13/20 18:21 Assessment and Plan Assessment and plan: Patient is a 60-year-old female presenting to the hospital with known past medical history of diabetes mellitus, anxiety, hypertension, she has not been compliant with her medications due to insurance purposes are out of her insurance. As a result has not had any of her medications. She presents to the hospital with complaints of 2 weeks she has had an intermittent/waxing and waning substernal chest pain described as aching in nature. Patient admits to shortness of breath, diaphoresis and nausea without vomiting associated with the pain. Patient admits to dyspnea on exertion with any little activity such as sweeping the floor or going upstairs. Patient also admits to palpitations during exertion. Patient currently gives her chest pain score of 3/10. Patient states her last stress test occurred approximate 5 years ago but she's never had a cardiac catheterization Although she is also able to localizes pain to the epigastric area lateral to the right breast bone. She unfortunately continues to use tobacco. Atypical chest pain likely secondary to panic attack GERD ANXIETY HTN DM Hyperlipdemia Plan Admit to Tele in obs Start on PPI Insulin therapy GI eval outpatient for GERD- Patient Continue appropriate home medications Stress test in a.m. Case management consult to assist with insurance issues per patient she has been unable to work due to severe anxiety and feels a scribbling and should qualify for disability she is working on this. Check an echocardiogram due to exertional dyspnea. DVT and GI prophylax Advance Directives: Yes Plan of care discussed with patient/family: Yes
[2020-08-14] MEDS ORDERED: DOCUSATE SODIUM 100 MG CAP PO PRN (10:30)
[2020-08-14] MEDS ORDERED: DEXTROSE 50% IN WATER (25GM) 50 ML SYRINGE IV PRN (10:30)
[2020-08-14] MEDS ORDERED: ALUM-MAG HYDROXIDE-SIMETHICONE 200-200-20MG/5ML ORAL LIQD 30 ML PO PRN (10:30)
[2020-08-14] MEDS ORDERED: NITROGLYCERIN 0.4 MG TAB SUBL SL PRN (11:00)
[2020-08-14] MEDS ORDERED: ALBUTEROL 2.5 MG/3 ML NEBU IH PRN (12:00)
[2020-08-14] MEDS ORDERED: SODIUM CHLORIDE 0.9% 1000 ML 1,000 ML ONE (13:01)
[2020-08-14] MEDS ORDERED: VALSARTAN 160MG TAB ONE (13:01)
[2020-08-14] MEDS: FAMOTIDINE 20 MG/2 ML INJ IV SCH ×2 (13:20→22:19)
[2020-08-14] MEDS: VALSARTAN 40 MG TAB PO SCH ×2 (13:20→22:19)
[2020-08-14] MEDS: CITALOPRAM 20 MG TAB PO SCH (13:20)
[2020-08-14] MEDS: SUCRALFATE 1 GM TAB PO SCH ×2 (13:23→22:18)
--- NOTE | 2020-08-14 15:01 | Electrocardiograph Report ---
[facility] Test Date: 2020-08-13 Test Time: 18:16:47 Pat Name: NAREN CAMPBELL Department: Room: [facility] Gender: F L[employer] Blind[employer]ch: HA : 1960 Requested By: ALLY MG Order Number: [id number] Reading MD: Bob Andino Measurements Intervals [place] Rate: 106 P: 67 MS: 159 QRS: -17 QRSD: 77 T: 65 QT: 338 QTc: 448 Interpretive Statements Sinus tachycardia Inferior infarct, old Probable anteroseptal infarct, old No previous ECG available for comparison Electronically Signed On 08-14-2020 15:01:12 EDT by Bob Andino
--- NOTE | 2020-08-14 15:03 | Electrocardiograph Report ---
[facility] Test Date: 2020-08-14 Test Time: 07:50:17 Pat Name: NAREN CAMPBELL Department: Room: [place] [address] Gender: F Workforce Specialist: HA : 1960 Requested By: ALLY MG Order Number: [id number] Reading MD: Bob Andino Measurements Intervals [place] Rate: 67 P: 63 RI: 168 QRS: 26 QRSD: 89 T: 62 QT: 416 QTc: 439 Interpretive Statements Sinus rhythm Consider anteroseptal infarct Compared to ECG 08/13/2020 18:16:47 Sinus tachycardia no longer present Myocardial infarct finding still present Electronically Signed On 08-14-2020 15:02:33 EDT by Bob Andino
[2020-08-14] MEDS: BUDESONIDE 0.5 MG/2 ML NEBU IH SCH (20:00)
[2020-08-14] MEDS: INSULIN LISPRO 100 UNIT/ML SUB-Q SCH (22:19)
[2020-08-14] MEDS: DICYCLOMINE 20 MG TAB PO SCH (22:55)
[2020-08-15 05:45] LABS: Basophils % (Auto) 0.5 % (0.0-1.8); Eosinophils # (Auto) 0.2 K/mm3 (0.0-0.4); Eosinophils % (Auto) 2.1 % (0.0-4.3); Hematocrit 43.4 % (30.3-42.9); Hemoglobin 14.2 gm/dl (10.1-14.3); Lymphocytes # (Auto) 2.9 K/mm3 (1.2-5.4); Lymphocytes % (Auto) 34.4 % (13.4-35.0); Mean Corpuscular HGB Conc 33 % (30-34); Mean Corpuscular Volume 87 fl (79-97); Monocytes # (Auto) 0.9 K/mm3 (0.0-0.8); Monocytes % (Auto) 10.1 % (0.0-7.3); Platelet Count 221 K/mm3 (140-440); Red Blood Count 5.01 M/mm3 (3.65-5.03); Red Cell Distribution Width 13.1 % (13.2-15.2)
[2020-08-15 06:09] LABS: Blood Urea Nitrogen 16 mg/dL (7-17); Calcium 9.5 mg/dL (8.4-10.2); Chol/HDL Ratio 5.23 %; HDL Cholesterol 39 mg/dL (40-59); Hemolysis Index 7; LDL Cholesterol,Direct 151 mg/dL (50-130)
[2020-08-15 06:12] LABS: BUN/Creatinine Ratio 27
[2020-08-15] MEDS: SUCRALFATE 1 GM TAB PO SCH ×3 (06:42→12:19)
[2020-08-15] MEDS ORDERED: REGADENOSON 0.4 MG/5 ML INJ IV ONE (07:27)
[2020-08-15] MEDS: BUDESONIDE 0.5 MG/2 ML NEBU IH SCH (08:37)
[2020-08-15] MEDS: VALSARTAN 40 MG TAB PO SCH (09:11)
[2020-08-15] MEDS: CITALOPRAM 20 MG TAB PO SCH (09:11)
[2020-08-15] MEDS: FAMOTIDINE 20 MG/2 ML INJ IV SCH (09:12)
[2020-08-15] MEDS: INSULIN LISPRO 100 UNIT/ML SUB-Q SCH ×3 (09:13→16:27)
[2020-08-15] MEDS ORDERED: ASPIRIN 81 MG TAB CHEW PO SCH (10:00)
[2020-08-15] MEDS: DICYCLOMINE 20 MG TAB PO SCH (11:18)
--- NOTE | 2020-08-15 16:00 | Discharge Summary ---
Providers - Providers Date of Admission: 08/14/20 09:10 Date of discharge: 08/15/20 Attending physician: ANN-MARIE BEAR 08/14/20 Consult to Cardiac Rehabilitation [CONS] Routine Reason For Exam: Phase 1 Primary care physician: [facility] [employer] Hospitalization Condition: Fair Hospital course: Patient is a 60-year-old female presenting to the hospital with known past medical history of diabetes mellitus, anxiety, hypertension, she has not been compliant with her medications due to insurance purposes are out of her insurance. As a result has not had any of her medications. She presents to the hospital with complaints of 2 weeks she has had an intermittent/waxing and waning substernal chest pain described as aching in nature. Patient admits to shortness of breath, diaphoresis and nausea without vomiting associated with the pain. Patient admits to dyspnea on exertion with any little activity such as sweeping the floor or going upstairs. Patient also admits to palpitations during exertion. 0. Patient states her last stress test occurred approximate 5 years ago but she's never had a cardiac catheterization. She was seen and evaluated in ED, given Aspirin and admitted for further management. Stress test done was negative. Chest pain determined to be non-cardiac due to GERD so she was discharged to follow as outpatient. Her diabetes was uncontrolled so Glipizide XL 10mg daily was added and she was asked to follow with her PCP. Disposition: TO HOME OR SELFCARE Final Discharge Diagnosis (Prints w/discharge instructions): 1.GERD. 2.Chest pain due to GERD - Discharge Diagnoses (1) Obesity (BMI 30.0-34.9) Status: Acute (2) Hypertension Status: Acute (3) Diabetes mellitus type 2 in obese Status: Acute (4) Chest pain Status: Acute (5) GERD (gastroesophageal reflux disease) Status: Acute Qualifiers: Esophagitis presence: without esophagitis Qualified Code(s): K21.9 - Gastro-esophageal reflux disease without esophagitis Core Measure Documentation - Palliative Care Palliative Care/ Comfort Measures: Not Applicable - Core Measures Any of the following diagnoses?: none Exam - Constitutional Vitals: Temp Pulse Resp BP Pulse Ox 97.8 F 85 14 137/64 98 08/15/20 06:51 08/15/20 09:24 08/15/20 06:51 08/15/20 08:20 08/15/20 09:34 Plan Activity: advance as tolerated Diet: low fat, low cholesterol, low salt, diabetic Plan of Treatment: 1.Follow up with PCP in 1 week Follow up with: PRIMARY CARE, [Primary Care Provider] - 3-5 Days Prescriptions: glipiZIDE XL [Glucotrol Xl] 10 mg PO QAM #30 tab.er.24 Famotidine [Pepcid] 20 mg PO BID #60 tablet
[2020-08-15 17:11] VITALS: BP 163/72
--- NOTE | 2020-08-17 10:45 | Nuclear Medicine Report ---
APPROVED REPORT Exam: Nuclear Stress Test Indication: Chest pain BMI: 0 Stress Test Details Stress Test: Pharmacologic stress testing performed using 0.4 mg of regadenoson per 5 mL given IV over 10 seconds. HR Resting HR: 71 bpm Max HR Achieved: 100 bpm Max Heart Rate (APMHR): 162 bpm Target HR (85% APMHR): 137 bpm % of APMHR: 61 Recovery HR: 87 bpm HR response to stress: Normal HR response to stress BP Resting BP: 134/64 mmHg Max BP: 154/74 mmHg Recovery BP: 144/65 mmHg BP response to stress: Normal blood pressure response to stress. ECG Resting ECG: Sinus Rhythm Stress ECG: Sinus Rhythm Clinical Reason for Termination: Completed protocol NM EXAM: Myocardial Perfusion REST/STRESS Imaging Protocol: Rest Tc-99m/Stress Tc-99m 1 day Resting Data Rest SPECT myocardial perfusion imaging was performed in supine position 45 minutes following the intravenous injection of 10 mCi of Tc-99m Myoview. Time of rest injection: 0625 Pharmacologic Stress Pharmacologic stress test was performed by injecting Regadenoson 0.4 mg IV push followed by the intravenous injection of 28 mCi of Tc-99m Myoview. Time of stress injection: 0812 Gated Stress SPECT was performed 30 minutes after stress injection. The images were gated to evaluate regional wall motion and calculate left ventricular ejection fraction. Study Quality Study: excellent Lung Uptake: Normal Study Data Post stress, the left ventricular ejection was 78%.. TID = 0.98. Perfusion Wall Motion The rest and stress images show normal left ventricular wall motion. Nuclear Conclusion ECG Findings: non-diagnostic Clinical Findings: equivocal Nuclear Findings: negative for ischemia Exercise Capacity: not assessed Left Ventricular Function: normal Risk Study: low The rest and stress images show normal perfusion. No evidence of stress induced ischemia or prior myocardial infarction. The rest and stress images show normal left ventricular wall motion. EF 78%
--- NOTE | 2020-08-18 19:02 | Electrocardiograph Report ---
[facility] Test Date: 2020-08-15 Test Time: 10:15:44 Pat Name: NAREN CAMPBELL Department: Room: A489 1 Gender: F Manager Talent: VIJAY : [id number] Requested By: GLORIA MAC Order Number: [id number] Reading MD: Rc Tillman Measurements Intervals [place] Rate: 62 P: 50 VA: 173 QRS: 13 QRSD: 95 T: 55 QT: 426 QTc: 432 Interpretive Statements Sinus rhythm Low voltage, precordial leads Compared to ECG 08/14/2020 07:50:17 Low QRS voltage now present Myocardial infarct finding no longer present Electronically Signed On 08-18-2020 19:01:46 EDT by Rc Tillman
== END 2020-08-15 19:08 | disposition home or self-care (01) ==
LOC: ED 18:07 → 4A 08-14 09:10
PROVIDERS: ADMIT Internal Medicine; ATTEND Internal Medicine
DX: R07.89 Other chest pain (principal); K21.9 Gastro-esophageal reflux disease without esophagitis; I10 Essential (primary) hypertension; E11.9 Type 2 diabetes mellitus without complications; E78.5 Hyperlipidemia, unspecified; F41.9 Anxiety disorder, unspecified; J44.9 Chronic obstructive pulmonary disease, unspecified; Z79.899 Other long term (current) drug therapy; Z98.890 Other specified postprocedural states; Z98.891 History of uterine scar from previous surgery; Z79.84 Long term (current) use of oral hypoglycemic drugs; Z79.82 Long term (current) use of aspirin
CPT/HCPCS: 36415; 71046; 71275; 78452; 80048; 80053; 80061; 82962; 83690; 83735; 84443; 84484; 85025; 85610; 85730; 93005; 93017; 93306; 96361; 96372; 96374; 96376; 99285; A9270; A9502; G0378; J2785; J7030; Q9967; J1815